=== PATIENT | female | born 1970 | race Caucasian/White ===

== ENCOUNTER → 2017-05-04 22:30 | Outpatient (CLI) | payer OTHER, SELFPAY ==
[2017-05-08 08:58] LABS: HPV APTIMA, High Risk Negative (Negative)
== END ==
PROVIDERS: Visit Provider Nurse Practitioner Women's Health
DX: Z12.4 Encounter for screening for malignant neoplasm of cervix (principal)
CPT/HCPCS: 88175; G0145

== ENCOUNTER → 2017-09-09 09:56 | Outpatient (CLI) | payer OTHER, SELFPAY | PROVIDERS: Visit Provider Nurse Practitioner Women's Health | DX: Z12.31 Encounter for screening mammogram for malignant neoplasm of breast (principal) | CPT/HCPCS: 77063; 77067 ==

== ENCOUNTER → 2018-09-14 12:22 | Outpatient (CLI) | payer OTHER, SELFPAY ==
--- NOTE | 2018-09-14 12:30 | BI_ITS ---
MAMMOGRAPHY - BILATERAL SCREENING REASON FOR EXAM: Female, 47 years old. Routine annual screening examination. PERTINENT HISTORY: Grandmother with breast cancer. TECHNIQUE: Digital bilateral breast anupam (3D mammographic acquisition) in the CC and MLO projections. 2-D mediolateral oblique (MLO) and craniocaudad (CC) views of both breasts were obtained. CAD: Full Field Digital Mammography with Computer Added Detection was performed. COMPARISON: Comparison is made with prior examination dated September 09, 2017. FINDINGS: Breast Composition: There are scattered areas of fibroglandular density. There are no dominant masses or suspicious calcifications. No other significant abnormalities are identified. There has been no significant change since the prior study. BI/SCREEN MAMM (CAD) W/ANUPAM BILAT IMPRESSION: Stable bilateral screening mammogram. Yearly follow-up mammogram recommended. (A) ASSESSMENT CATEGORY: BIRADS Category 1: Negative. A letter regarding these results will be sent to the patient by the facility within 30 days. Approximately 10% of breast cancers are not detected by mammography. A normal mammogram should not delay biopsy of a clinically suspicious abnormality. [id number] Electronically Signed: Lamonte Shane, at 13:42 EDT , Service support ,
== END ==
PROVIDERS: Family Provider Family Medicine; PCP Family Medicine; Referring Provider Nurse Practitioner Women's Health; Visit Provider Nurse Practitioner Women's Health
DX: Z12.31 Encounter for screening mammogram for malignant neoplasm of breast (principal)
CPT/HCPCS: 77063; 77067

== ENCOUNTER → 2019-02-23 15:34 | Outpatient (CLI) | payer OTHER, SELFPAY ==
[2018-09-14 12:57] VITALS: BMI 25.4
--- NOTE | 2019-02-22 10:00 | COLBX_PTH ---
PATIENT: JOHN KATE LOC: [facility] U#:[id number] AGE/SX: 54/F ROOM: RE02/23/[address]: Dr. Hyun Norton MD : 1970 BED: DIS: SPEC #: [id number] RECD: 02/23/19 15:30 STATUS: TABITHA RESharifa #: [id number] ANGELA: 02/22/19 10:[address]: Hyun Norton DEPT: SURGICAL PATHOLOGY RECD BY: Jm Puentes ENTERED: 02/24/19 10:30 SP TYPE: COLON BX SOLITARIO DR: Dr. Gregg Humphrey MD Tissues: COLON BIOPSY Procedures: Surgery Specimen Level IV HEADER OPERATION: Colonoscopy with biopsy PRE-OP DIAGNOSIS: R19.4, R19.5, K62.89 TISSUE SUBMITTED: Random colon biopsies MICROSCOPIC DIAGNOSIS Colon, random biopsy: Fragments of colonic mucosa, no pathologic diagnosis. SJ:larry 02/25/19 MICROSCOPIC DESCRIPTION Slides are reviewed. GROSS DESCRIPTION Received in fixative is one container labeled with the patient's name and designated random colon biopsy. The specimen consists of multiple irregular fragments of light block soft tissue that in aggregate measure 1.5 x 0.5 x 0.1 cm. The specimen is totally submitted in one cassette. / SJ:rg 02/24/19 TC:4 CPT: 15209
== END ==
PROVIDERS: Family Provider Family Medicine; PCP Family Medicine; Referring Provider Surgery; Visit Provider Surgery
DX: K62.89 Other specified diseases of anus and rectum (principal); R19.4 Change in bowel habit; R19.5 Other fecal abnormalities
CPT/HCPCS: 88305

== ENCOUNTER → 2019-10-25 13:54 | Outpatient (CLI) | payer OTHER, SELFPAY ==
[2018-09-14 12:57] VITALS: BMI 25.4
--- NOTE | 2019-10-25 13:54 | BI_ITS ---
MAMMOGRAPHY - BILATERAL SCREENING REASON FOR EXAM: Female, 48 years old. Routine annual screening examination. PERTINENT HISTORY: Grandmother with breast cancer. TECHNIQUE: Digital bilateral breast anupam (3D mammographic acquisition) in the CC and MLO projections. 2-D mediolateral oblique (MLO) and craniocaudad (CC) views of both breasts were obtained. CAD: Full Field Digital Mammography with Computer Added Detection was performed. COMPARISON: Comparison is made with prior examination 09/14/2018 and 09/09/2017. FINDINGS: Breast Composition: There are scattered areas of fibroglandular density. There are no dominant masses or suspicious calcifications. No other significant abnormalities are identified. There has been no significant change since the prior study. BI/SCREEN MAMM (CAD) W/ANUPAM BILAT IMPRESSION: Stable bilateral screening mammogram. Yearly follow-up mammogram recommended. (A) ASSESSMENT CATEGORY: BIRADS Category 1: Negative. A letter regarding these results will be sent to the patient by the facility within 30 days. Approximately 10% of breast cancers are not detected by mammography. A normal mammogram should not delay biopsy of a clinically suspicious abnormality. [id number] Electronically Signed: Lamonte Shane, at 15:16 EDT , Service support ,
== END ==
PROVIDERS: PCP Family Medicine; Referring Provider Nurse Practitioner Women's Health; Visit Provider Nurse Practitioner Women's Health
DX: Z12.31 Encounter for screening mammogram for malignant neoplasm of breast (principal)
CPT/HCPCS: 77063; 77067

== ENCOUNTER 2021-02-19 12:47 | Outpatient (CLI) | payer OTHER, SELFPAY ==
--- NOTE | 2021-02-19 12:49 | BI_ITS ---
MAMMOGRAPHY - BILATERAL SCREENING REASON FOR EXAM: Female, 50 years old. Routine annual screening examination. PERTINENT HISTORY: Grandmother with breast cancer. TECHNIQUE: Digital bilateral breast anupam (3D mammographic acquisition) in the CC and MLO projections. 2-D mediolateral oblique (MLO) and craniocaudad (CC) views of both breasts were obtained. CAD: Full Field Digital Mammography with Computer Added Detection was performed. COMPARISON: Comparison is made with prior study dated 10/25/2019 and 09/14/2018. FINDINGS: Breast Composition: There are scattered areas of fibroglandular density. There are no dominant masses or suspicious calcifications. Stable small benign-appearing bilateral axillary adenopathy. No other significant abnormalities are identified. There has been no significant change since the prior study. BI/SCRN MAMM (CAD)W/ANUPAM BILAT IMPRESSION: Stable bilateral screening mammogram. Yearly follow-up mammogram recommended. (A) ASSESSMENT CATEGORY: BIRADS Category 2: Benign. A letter regarding these results will be sent to the patient by the facility within 30 days. Approximately 10% of breast cancers are not detected by mammography. A normal mammogram should not delay biopsy of a clinically suspicious abnormality. [id number] Electronically Signed: Lamonte Shane MD at 14:06 EST , Service support ,
== END 2021-02-19 23:59 | disposition short-term general hospital (02) ==
LOC: OPBI 12:48
PROVIDERS: PCP Family Medicine; Referring Provider Nurse Practitioner Women's Health; Visit Provider Nurse Practitioner Women's Health
DX: Z12.31 Encounter for screening mammogram for malignant neoplasm of breast (principal); Z80.3 Family history of malignant neoplasm of breast
CPT/HCPCS: 77063; 77067

== ENCOUNTER 2021-04-25 16:53 | Emergency (ER) | payer OTHER, SELFPAY ==
[2021-04-25 16:53] VITALS: BP 173/127; PULSE 117; RESP 20; TEMP 36.7; O2SAT 99
[2021-04-25 17:04] VITALS: BMI 30.8
--- NOTE | 2021-04-25 17:05 | CT_ITS ---
We are attempting to reach an attending provider to discuss findings. An addendum with communication details will be sent when the communication is complete. STUDY: CT HEAD STROKE PROTOCOL W/O CONTRAST INJECTION REASON FOR EXAM: Female, 50 years old. NEURO SYMPTOMS RADIATION DOSAGE (If Supplied By Facility): CTDIvol = ( ) mGy, DLP = ( 745.49 ) mGycm TECHNIQUE: Transaxial CT imaging of the brain was performed without administration of intravenous contrast material. Individualized dose optimization techniques were used for this CT. COMPARISON: No relevant priors. FINDINGS: Normal soft tissue structures. Normal calvarium. Normal size ventricles and extra-axial spaces for the patient''s age. Minor periventricular white matter ischemic changes. Normal basal ganglia and thalami. Normal brainstem. Normal cerebellum. There is no intracranial hemorrhage. There are no findings of an acute ischemic infarction. Normal visualized paranasal sinuses. ASPECT score: 10 CT/STROKE Brain/Head without Cont IMPRESSION: Minor periventricular white matter ischemic change. No acute bleed. If concern for acute infarct MRI recommended Electronically Signed: Schuyler Jackson MD at 17:14 EDT Reading Location ID and State: [facility] / [place] , Service support ,
[2021-04-25 17:12] VITALS: BP 173/127; PULSE 117; RESP 20; TEMP 36.7; O2SAT 99; BMI 30.8
--- NOTE | 2021-04-25 17:17 | CT_ITS ---
EXAM: CT ANGIOGRAPHY HEAD AND NECK WITH INTRAVENOUS CONTRAST CLINICAL INDICATION: r/o stroke -- in ed 17 TECHNIQUE: [place]/head and neck CT angiography protocol performed with intravenous contrast. This CT exam was performed using one or more of the following dose reduction techniques: automated exposure control, adjustment of the mA and/or kV according to patient size, and/or use of iterative reconstruction technique. This report was created using [employer] report generation technology. MIP reconstructed images were created and reviewed. CONTRAST: IV 100mL Isovue-370 COMPARISON: None. FINDINGS: HEAD: RIGHT ANTERIOR CEREBRAL ARTERY: Unremarkable. No significant stenosis at the visualized segments. Anterior communicating artery is present. No aneurysm. RIGHT MIDDLE CEREBRAL ARTERY: Unremarkable. No significant stenosis at the visualized segments. No aneurysm. RIGHT POSTERIOR CEREBRAL ARTERY: Unremarkable. No occlusion or significant stenosis. No aneurysm. RIGHT INTRACRANIAL INTERNAL CAROTID ARTERY: Unremarkable. No significant stenosis. No dissection or occlusion. RIGHT INTRACRANIAL VERTEBRAL ARTERY: Unremarkable. No significant stenosis. No dissection or occlusion. LEFT ANTERIOR CEREBRAL ARTERY: Unremarkable. No significant stenosis at the visualized segments. No aneurysm. LEFT MIDDLE CEREBRAL ARTERY: Unremarkable. No significant stenosis at the visualized segments. No aneurysm. LEFT POSTERIOR CEREBRAL ARTERY: Unremarkable. No occlusion or significant stenosis. No aneurysm. LEFT INTRACRANIAL INTERNAL CAROTID ARTERY: Unremarkable. No significant stenosis. No dissection or occlusion. LEFT INTRACRANIAL VERTEBRAL ARTERY: Unremarkable. No significant stenosis. No dissection or occlusion. BASILAR ARTERY: Unremarkable. No significant stenosis. No aneurysm. GREAT VESSELS OF AORTIC ARCH: Unremarkable. Normal anatomy, patent. OTHER VASCULATURE: There are no acute findings of the right and left internal carotid artery. ALL ABOVE CRITERIA BY NASCET. No vascular malformation. NECK: RIGHT COMMON CAROTID ARTERY: Unremarkable. No significant stenosis. No dissection or occlusion. RIGHT EXTRACRANIAL INTERNAL CAROTID ARTERY: Unremarkable. No significant stenosis. No dissection or occlusion. RIGHT EXTERNAL CAROTID ARTERY: Unremarkable. No occlusion. RIGHT EXTRACRANIAL VERTEBRAL ARTERY: Unremarkable. No significant stenosis. No dissection or occlusion. LEFT COMMON CAROTID ARTERY: Unremarkable. No significant stenosis. No dissection or occlusion. LEFT EXTRACRANIAL INTERNAL CAROTID ARTERY: Unremarkable. No significant stenosis. No dissection or occlusion. LEFT EXTERNAL CAROTID ARTERY: Unremarkable. No occlusion. LEFT EXTRACRANIAL VERTEBRAL ARTERY: Unremarkable. No significant stenosis. No dissection or occlusion. LUNG APICES: Unremarkable as visualized. HEAD and NECK: BONES/JOINTS: Unremarkable. No discrete lytic or blastic abnormalities. SOFT TISSUES: Unremarkable. OTHER FINDINGS: There are no acute findings of the [place] without a demonstrated aneurysm or hemodynamically significant stenosis. ALL ABOVE CRITERIA BY NASCET. CAROTID STENOSIS REFERENCE USING NASCET CRITERIA: % ICA stenosis = (1 - narrowest ICA diameter/diameter of distal cervical ICA) x 100. Mild - <50% stenosis. Moderate - 50-69% stenosis. Severe - 70-94% stenosis. Near occlusion - 95-99% stenosis. Occluded - 100% stenosis. CT/CTA Head AND Neck W/ Contrast IMPRESSION: 1. There are no acute findings of the [place] without a demonstrated aneurysm or hemodynamically significant stenosis. ALL ABOVE CRITERIA BY NASCET. 2. There are no acute findings of the right and left internal carotid artery. ALL ABOVE CRITERIA BY NASCET. Electronically Signed: Rui Sandoval MD at 18:16 EDT ,
[2021-04-25 17:29] LABS: Absolute Lymphocyte Count 2.61 X10^3/uL (0.83-4.51); Absolute Neutrophil Count 2.5 X10^3/uL (2.0-7.7); Basophil# 0.03 X10^3/uL; Basophil% 0.5 % (0-1); Eosinophil# 0.08 X10^3/uL; Eosinophils% 1.4 % (0-5); Hematocrit 39.8 % (37-47); Hemoglobin 13.6 g/dL (12.0-15.0); Lymphocyte # 2.61 X10^3/ul (0.83-4.51); Lymphocyte % 45.9 % (19-41); Mean Corp Hgb Conc 34.2 g/dL (32-36); Mean Corpuscular Hgb 29.4 pg (27.0-32.0); Mean Platelet Vol. 10.2 fl (6.2-12.0); Monocyte# 0.44 X10^3/uL; Monocyte% 7.7 % (0-10); NRBC Flagged by Analyzer 0 % (0-5); Neutrophil # 2.52 X10^3/uL (2.7-7.7); Neutrophil % 44.3 % (47-70); Platelet Count 217 K/mm3 (150-450); RBC Distribution Width SD 40.5 fl (35.1-43.9); Red Blood Count 4.63 M/mm3 (4.2-5.4); White Blood Count 5.7 K/mm3 (4.4-11.0)
[2021-04-25 17:30] LABS: Prothrombin Time (Protime)PT. 12.9 SECONDS (11.7-14.9)
--- NOTE | 2021-04-25 17:33 | EDS_ITS ---
HPI <JACOBO Soto - Last Filed: 04/25/21 20:48> History of Present Illness Chief Complaint: Neuro S/Sx Narrative Narrative: 50-year-old female with no past medical history presents with left sided paresthesias. 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 She states it feels like when you have had lidocaine at the dentist and it is waking up. She has no lower extremity symptoms. No weakness, vision changes, or speech changes. No difficulty ambulating. No headache, fever, chills, or recent infectious symptoms. She states she had similar facial numbness 25 years ago and thinks she had a CAT scan at that time but around then she was also having frequent headaches. She denies recent headache. [facility] <JACOBO Soto - Last Filed: 04/25/21 20:48> [facility] Medical History (Updated 04/25/21 @ 20:46 by JACOBO Soto) Condyloma acuminata Migraines Home Medications ascorbic acid (vitamin C) 500 mg PO DAILY 04/25/21 [History Last Taken 04/23/21] cholecalciferol (vitamin D3) 25 mcg PO DAILY 04/25/21 [History Last Taken 04/25/21] Allergy/AdvReac Type Severity Reaction Status Date / Time sulfamethoxazole Allergy Mild Unknown Verified 04/25/21 17:05 [From Bactrim] trimethoprim [From Bactrim] Allergy Mild Unknown Verified 04/25/21 17:05 Family History Grandmother Heart disease Cancer Bladder Kidney Brain Tumor Breast cancer Grandfather Diabetes Social History Smoking Status: Never smoker alcohol intake: never substance use type: does not use caffeine: Yes frequency: 5-6 times per week seatbelt use: always do you feel safe at home: Yes additional social history: - Joann (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 Eyes: Negative for visual change. ENT: Negative for sore throat, ear pain, rhinorrhea. CVS: Negative for palpitations, chest pain, syncope. Respiratory: Negative for shortness of breath, cough, orthopnea. GI: Negative for abdominal pain, nausea, vomiting, diarrhea, constipation, melena, hematochezia. : Negative for dysuria, hematuria or frequency. Neuro: Positive for sensory dysfunction. Negative for headache, motor dysfunction. Skin: Negative for rash, abscess, or wound. Musc: Negative for joint pain, swelling, trauma. Heme: Negative for easy bruising, bleeding, lymphadenopathy. EXAM <JACOBO Soto - Last Filed: 04/25/21 20:48> Physical Exam Narrative Exam Narrative: CONST: Patient sitting in no acute distress. EYES: Normal inspection. ENT: Normal inspection, moist mucous membranes. NECK: Normal inspection. RESP: No respiratory distress, CTAB. CVS: Regular rate and rhythm, no murmur, no gallop. ABD: Soft and nontender, no guarding or rebound, nondistended. SKIN: Color normal, no rash, warm, dry, intact. EXTREMITIES: Normal appearance, no pedal edema. 5/5 upper and lower extremity strength, 2+ radial and DP pulses NEURO: Oriented x4. Follows commands, CN II through XII intact, EOMI, PERRLA, no visual field deficits. Face is symmetric, no upper or lower extremity drift, normal kbbliv-jk-jfme and lrjm-no-swnt bilaterally, slightly decreased sensation to light touch in the left face and left arm, no aphasia or dysarthria, no extinction. NIH = 1. PSYCH: Normal affect. Const Vital Signs: 04/25/21 16:53 04/25/21 17:12 04/25/21 18:25 Temperature 98.0 F 98.0 F Temperature Source Temporal Temporal Pulse Rate 117 H 117 H 67 Respiratory Rate 20 H 20 H 15 Blood Pressure 173/127 H 173/127 H Blood Pressure Mean 142 142 Pulse Ox 99 99 97 Oxygen Delivery Method Room Air Room Air 04/25/21 19:55 04/25/21 20:58 Temperature Temperature Source Pulse Rate 88 58 L Respiratory Rate 18 17 Blood Pressure 144/82 H Blood Pressure Mean 102 Pulse Ox 99 99 Oxygen Delivery Method Room Air Room Air <Dr. Alejandro Dumont MD - Last Filed: 04/25/21 22:58> Physical Exam Const Vital Signs: 04/25/21 16:53 04/25/21 17:12 04/25/21 18:25 Temperature 98.0 F 98.0 F Temperature Source Temporal Temporal Pulse Rate 117 H 117 H 67 Respiratory Rate 20 H 20 H 15 Blood Pressure 173/127 H 173/127 H Blood Pressure Mean 142 142 Pulse Ox 99 99 97 Oxygen Delivery Method Room Air Room Air 04/25/21 19:55 04/25/21 20:58 Temperature Temperature Source Pulse Rate 88 58 L Respiratory Rate 18 17 Blood Pressure 144/82 H Blood Pressure Mean 102 Pulse Ox 99 99 Oxygen Delivery Method Room Air Room Air MDM <JACOBO Soto - Last Filed: 04/25/21 20:48> [facility] Narrative Medical decision making narrative: Patient presents with paresthesias in her left face and left arm. She appears well and nontoxic. In triage she was hypertensive at 173/127, heart rate 117, otherwise normal vital signs. I examined her in triage. She has subjective decreased sensation to light touch in the left face and left arm. There is no weakness present or other focal neurologic deficits. Stroke alert was called and she was taken immediately to CT. Initial CT/CTA are negative for acute findings. Basic labs unremarkable. Upon reexamination I did a full neurological exam and her NIH is 1 for the subjective sensory deficits. The case was discussed with the hospitalist for possible admission and he said there is a stat MRI opening. The plan is to obtain the MRI brain without contrast from the ED and if normal she can be discharged home as she really has no risk factors for stroke. She takes no medications. Her blood pressure was elevated in triage but upon reexamination is 140/90. MRI brain without contrast was obtained and shows no acute process. At this time the etiology of her symptoms is unclear but she is stable to go home and follow-up for outpatient work-up. However she was counseled if she has any new neurological symptoms she should return to the ER. Patient was agreeable and discharged in stable condition. 1. Left sided facial and upper extremity paresthesia Lab Data Labs: Laboratory Results - last 24 hr 04/25/21 04/25/21 04/25/21 16:59 16:59 16:59 WBC 5.7 RBC 4.63 Hgb 13.6 Hct 39.8 MCV 86.0 MCH 29.4 MCHC 34.2 RDW Std Deviation 40.5 RDW Coeff of Andrea 13.0 Plt Count 217 MPV 10.2 Immature Gran % (Auto) 0.200 Neut % (Auto) 44.3 L Lymph % (Auto) 45.9 H [place] % (Auto) 7.7 Eos % (Auto) 1.4 Baso % (Auto) 0.5 Absolute Neuts (auto) 2.5 Absolute Lymphs (auto) 2.61 Nucleated RBC % 0 PT 12.9 INR 1.0 Sodium 139 Potassium 3.4 L Chloride 105 Carbon Dioxide 28.0 Anion Gap 6 BUN 14 Creatinine 1.00 Estim Creat Clear Calc 47.81 Est GFR (MDRD) Af Amer 75 Est GFR (MDRD) Non-Af 62 BUN/Creatinine Ratio 14.0 Glucose 101 Calcium 9.3 Radiography Diagnostic Testing: Clinical Impression(s) from Imaging Studies Brain CT 04/25/21 17:05 IMPRESSION: Minor periventricular white matter ischemic change. No acute bleed. If concern for acute infarct MRI recommended Electronically Signed: Schuyler Jackson MD at 17:14 EDT , ADDENDUM: 04/25/21 1725 IMPRESSION: Minor periventricular white matter ischemic change. No acute bleed. If concern for acute infarct MRI recommended N.B. : The above Results were Read Back by Schuyler Jackson MD to TANGELA TOPETE PA, and understanding confirmed on 04/25/2021 17:18:10 (ET). Electronically Signed: Schuyler Jackson MD at 17:14 EDT , Head/Neck CTA 04/25/21 17:17 IMPRESSION: 1. There are no acute findings of the [place] without a demonstrated aneurysm or hemodynamically significant stenosis. ALL ABOVE CRITERIA BY NASCET. 2. There are no acute findings of the right and left internal carotid artery. ALL ABOVE CRITERIA BY NASCET. Electronically Signed: Rui Sandoval MD at 18:16 EDT , Brain MRI 04/25/21 19:20 IMPRESSION: Normal unenhanced MRI of the brain. Electronically Signed: Schuyler Jackson MD at 20:36 EDT , EKG Initial EKG: Attestation: I personally reviewed and interpreted this EKG as follows: Interpretation: Sinus Rhythm Comments: Sinus bradycardia, normal intervals, no acute ischemic change <Dr. Alejandro Dumont MD - Last Filed: 04/25/21 22:58> [facility] MDM Narrative Medical decision making narrative: History: Patient presents with some sensory changes of her left arm and a little bit on her left lower jaw that started around 230 today. It was a paresthesia type feeling. No weakness or discoordination. No speech or vision complaints. It is improving now. She thinks she had this once about 25 years ago but has not had it since. She is overall healthy and on no long-term medications for diabetes blood pressure cholesterol. There is no family history really of stroke or heart disease in first-degree relative. Exam is really normal at this time. She feels that her symptoms are better. Her NIH for me is 0 at this time. Evidently she was a 1 for some slight sensory changes in the left arm when she first showed up. Blood work shows no acute process. CT is negative. Stroke teleneurologist did see her recommending further evaluation including MRI. We discussed case with hospitalist. They were able to arrange a MRI tonight. This MRI was normal. With her symptoms resolved and this normal she will do further work-up as an outpatient. Lab Data Attestation: I reviewed the patient's lab results. Labs: Laboratory Results - last 24 hr 04/25/21 04/25/21 04/25/21 16:59 16:59 16:59 WBC 5.7 RBC 4.63 Hgb 13.6 Hct 39.8 MCV 86.0 MCH 29.4 MCHC 34.2 RDW Std Deviation 40.5 RDW Coeff of Andrea 13.0 Plt Count 217 MPV 10.2 Immature Gran % (Auto) 0.200 Neut % (Auto) 44.3 L Lymph % (Auto) 45.9 H [place] % (Auto) 7.7 Eos % (Auto) 1.4 Baso % (Auto) 0.5 Absolute Neuts (auto) 2.5 Absolute Lymphs (auto) 2.61 Nucleated RBC % 0 PT 12.9 INR 1.0 Sodium 139 Potassium 3.4 L Chloride 105 Carbon Dioxide 28.0 Anion Gap 6 BUN 14 Creatinine 1.00 Estim Creat Clear Calc 47.81 Est GFR (MDRD) Af Amer 75 Est GFR (MDRD) Non-Af 62 BUN/Creatinine Ratio 14.0 Glucose 101 Calcium 9.3 Radiography Diagnostic Testing: Clinical Impression(s) from Imaging Studies Brain CT 04/25/21 17:05 IMPRESSION: Minor periventricular white matter ischemic change. No acute bleed. If concern for acute infarct MRI recommended Electronically Signed: Schuyler Jackson MD at 17:14 EDT , ADDENDUM: 04/25/21 1725 IMPRESSION: Minor periventricular white matter ischemic change. No acute bleed. If concern for acute infarct MRI recommended N.B. : The above Results were Read Back by Schuyler Jackson MD to TANGELA TOPETE PA, and understanding confirmed on 04/25/2021 17:18:10 (ET). Electronically Signed: Schuyler Jackson MD at 17:14 EDT , Head/Neck CTA 04/25/21 17:17 IMPRESSION: 1. There are no acute findings of the [place] without a demonstrated aneurysm or hemodynamically significant stenosis. ALL ABOVE CRITERIA BY NASCET. 2. There are no acute findings of the right and left internal carotid artery. ALL ABOVE CRITERIA BY NASCET. Electronically Signed: Rui Sandoval MD at 18:16 EDT , Brain MRI 04/25/21 19:20 IMPRESSION: Normal unenhanced MRI of the brain. Electronically Signed: Schuyler Jackson MD at 20:36 EDT , Discharge Plan Triage Chief Complaint: Neuro S/Sx ED Provider: Tangela Topete Dx/Rx/DC Orders Clinical Impression: Paresthesia Instructions: ED Paraesthesias Prescriptions: No Action ascorbic acid (vitamin C) 500 mg Tablet,Chewable 500 mg PO DAILY RF: 0 cholecalciferol (vitamin D3) 25 mcg (1,000 unit) Capsule 25 mcg PO DAILY RF: 0 Primary Care Provider: Gregg Humphrey Referrals: Gregg Humphrey MD [Primary Care Provider] - Activity Restrictions/Additional Instructions: Today the MRI of your brain showed no abnormalities with no signs of stroke. This time the cause of your symptoms is not clear but we feel you are safe to go home with a normal work-up here in the ER. If you have new or worsening symptoms please return to the ER, otherwise follow-up with your primary care doctor. Disposition Disposition: Home, Self Care Discharge Date/Time: 04/25/21 21:00
--- NOTE | 2021-04-25 17:35 | CM.ED ---
VICTORINO Note: Stroke Alert VICTORINO and VICTORINO Eryn Holbrook responded to stroke alert. Patient was in the room with her mother. Patient appeared comfortable. She voiced she was glad she did not have stroke. VICTORINO provided emotional support. VICTORINO remains available if needs arise. Plan: Emotional Support Ramya DU
[2021-04-25 17:45] LABS: Anion Gap 6 (5-15); BUN 14 mg/dL (7-18); Calcium,Total 9.3 mg/dL (8.5-10.1); Chloride 105 mmol/L (98-107); EST Glomerular Filtration Rate 62 mL/min (>60); Est Glom Filt Rate - Afr Amer 75 mL/min (>60); Estimated Creatinine Clearance 47.81 ml/min; Glucose 101 mg/dL (74-106); Potassium 3.4 mmol/L (3.5-5.1); Sodium Level 139 mmol/L (136-145)
--- NOTE | 2021-04-25 18:19 | EKG12_ITS ---
Test Reason : STROKE ALERT Blood Pressure : / mmHG Vent. Rate : 059 BPM Atrial Rate : 059 BPM P-R Int : 132 ms QRS Dur : 070 ms QT Int : 444 ms P-R-T Axes : 057 050 026 degrees QTc Int : 439 ms Sinus bradycardia Otherwise normal ECG Confirmed by ESTRADA YO, CATHIE ([id number]), acquisition editor QUAN PARRA ([id number]) on 04/29/2021 11:04:00 A M Referred By: PL Confirmed By:SUNITA DORADO MD
[2021-04-25 18:25] VITALS: PULSE 67; RESP 15; O2SAT 97
--- NOTE | 2021-04-25 19:20 | MRI_ITS ---
STUDY: MRI BRAIN WITHOUT CONTRAST REASON FOR EXAM: Female, 50 years old. paresthesia TECHNIQUE: Standardized multiplanar fat and water weighted pulse sequences were obtained. COMPARISON: CT of the brain 04/25/2021 FINDINGS: Normal size of the ventricles and extra-axial spaces for the patient''s age. Normal white matter tracts of the supratentorial brain. Normal bilateral basal ganglia. Normal thalami. There is no extra-axial fluid accumulation. Normal flow voids within the major intracranial circulation suggesting patency by spin echo criteria. Normal sella turcica, pituitary gland, infundibular stalk, optic chiasm and hypothalamus. Normal tectal plate and pineal gland. Normal midbrain, evan and medulla. Normal cerebellum. Normal basal cisterns. Normal bilateral temporal bones. Normal bilateral internal auditory canals. No demonstrated orbital abnormality, within the constraints of a routine brain study. Normal visualized paranasal sinuses. Normal calvarium and skull base. Normal visualized soft tissue structures. Normal visualized upper cervical spine. MRI/Brain without Contrast IMPRESSION: Normal unenhanced MRI of the brain. Electronically Signed: Schuyler Jackson MD at 20:36 EDT ,
[2021-04-25 19:55] VITALS: PULSE 88; RESP 18; O2SAT 99
[2021-04-25 20:58] VITALS: BP 144/82; PULSE 58; RESP 17; O2SAT 99
[2021-04-26 07:35] LABS: Bedside Glucose 106 mg/dL (74-106)
== END 2021-04-25 21:00 | disposition home or self-care (01) ==
PROVIDERS: Emergency Provider Physician Assistant; PCP Family Medicine; Visit Provider Physician Assistant
DX: R20.2 Paresthesia of skin (principal); R51.9 Headache, unspecified; I10 Essential (primary) hypertension; Z79.899 Other long term (current) drug therapy
CPT/HCPCS: 70450; 70496; 70498; 70551; 80048; 82962; 85025; 85610; 93005; 99283; Q9967; A4216

== ENCOUNTER → 2022-02-24 | Outpatient (CLI) | payer OTHER, SELFPAY ==
--- NOTE | 2022-02-24 09:52 | BI_ITS ---
MAMMOGRAPHY - BILATERAL SCREENING REASON FOR EXAM: Female, 51 years old. Routine annual screening examination. PERTINENT HISTORY: Sister with breast cancer. Grandmother with breast cancer. TECHNIQUE: Digital bilateral breast anupam (3D mammographic acquisition) in the CC and MLO projections. 2-D mediolateral oblique (MLO) and craniocaudad (CC) views of both breasts were obtained. CAD: Full Field Digital Mammography with Computer Added Detection was performed. COMPARISON: Comparison is made with prior study dated 02/19/2021 and 10/25/2019. FINDINGS: Breast Composition: There are scattered areas of fibroglandular density. There are no dominant masses or suspicious calcifications. Stable small benign-appearing bilateral axillary lymph nodes. No other significant abnormalities are identified. There has been no significant change since the prior study. BI/SCRN MAMM (CAD)W/ANUPAM BILAT IMPRESSION: Stable bilateral screening mammogram. Yearly follow-up mammogram recommended. (A) ASSESSMENT CATEGORY: BIRADS Category 2: Benign. A letter regarding these results will be sent to the patient by the facility within 30 days. Approximately 10% of breast cancers are not detected by mammography. A normal mammogram should not delay biopsy of a clinically suspicious abnormality. [id number] Electronically Signed: Lamonte Shane MD at 12:41 EST ,
== END | disposition home or self-care (01) ==
LOC: OPBI 09:49
PROVIDERS: PCP Family Medicine; Visit Provider Nurse Practitioner Women's Health
DX: Z12.31 Encounter for screening mammogram for malignant neoplasm of breast (principal); Z80.3 Family history of malignant neoplasm of breast
CPT/HCPCS: 77063; 77067

== ENCOUNTER → 2022-02-26 | Outpatient (CLI) | payer OTHER, SELFPAY ==
[2022-02-28 20:29] LABS: HPV APTIMA, High Risk Negative (Negative)
== END | disposition home or self-care (01) ==
LOC: US 13:04
PROVIDERS: PCP Family Medicine; Visit Provider Nurse Practitioner Women's Health
DX: Z01.419 Encounter for gynecological examination (general) (routine) without abnormal findings (principal)
CPT/HCPCS: 87624; 88175; G0145

== ENCOUNTER → 2022-03-05 | Outpatient (CLI) | payer OTHER, SELFPAY ==
--- NOTE | 2022-03-05 15:51 | US_ITS ---
STUDY: ULTRASOUND OF THE FEMALE PELVIS - COMPLETE REASON FOR EXAM: Female, 51 years old. Irregular menses. Abnormal uterine bleeding. LMP: Unknown. TECHNIQUE: Transabdominal and Transvaginal TECHNICAL QUALITY: Adequate. COMPARISON: None. FINDINGS: The uterus is initially anteverted but appears retroverted in later images. It is in a midline position. The uterus measures 7.3 x 4.8 x 4.5 cm. Multiple nabothian cysts. The endometrium measures 3.5 mm in thickness, and is hyperechoic. There is no demonstrated endometrial mass. There is a 1.7 x 1.6 x 1.3 cm in the posterior fundus. I.U.D. - The patient does not have an I.U.D. The right ovary is visualized. The right ovary measures 2.5 x 1.5 x 1.3 cm. There are multiple follicles of the right ovary with a 1.3 x 1.0 x 1.3 cm dominant follicle. There is no visualized right adnexal mass or complex lesion. There is normal arterial and normal venous vascularity. The left ovary is visualized. The left ovary measures 1.7 x 1.2 x 1 point cm. There are multiple follicles of the left ovary without a dominant cyst. There is no visualized left adnexal mass or complex lesion. There is normal arterial and normal venous vascularity. There is mild fluid in the cul-de-sac. The pre void volume of the bladder was 310 ml. The urinary bladder is otherwise grossly normal Polycystic ovary disease: No. US/Pelvic (Non ) IMPRESSION: 1. Fibroid uterus. There is no endometrial abnormality. 2. Multiple nabothian cysts. 3. Normal ovaries. 4. Minimal free fluid, thought to be physiologic. Electronically Signed: Moustapha Howard DO at 17:43 EST ,
--- NOTE | 2022-03-05 15:51 | US_ITS ---
STUDY: ULTRASOUND OF THE FEMALE PELVIS - COMPLETE REASON FOR EXAM: Female, 51 years old. Irregular menses. Abnormal uterine bleeding. LMP: Unknown. TECHNIQUE: Transabdominal and Transvaginal TECHNICAL QUALITY: Adequate. COMPARISON: None. FINDINGS: The uterus is initially anteverted but appears retroverted in later images. It is in a midline position. The uterus measures 7.3 x 4.8 x 4.5 cm. Multiple nabothian cysts. The endometrium measures 3.5 mm in thickness, and is hyperechoic. There is no demonstrated endometrial mass. There is a 1.7 x 1.6 x 1.3 cm in the posterior fundus. I.U.D. - The patient does not have an I.U.D. The right ovary is visualized. The right ovary measures 2.5 x 1.5 x 1.3 cm. There are multiple follicles of the right ovary with a 1.3 x 1.0 x 1.3 cm dominant follicle. There is no visualized right adnexal mass or complex lesion. There is normal arterial and normal venous vascularity. The left ovary is visualized. The left ovary measures 1.7 x 1.2 x 1 point cm. There are multiple follicles of the left ovary without a dominant cyst. There is no visualized left adnexal mass or complex lesion. There is normal arterial and normal venous vascularity. There is mild fluid in the cul-de-sac. The pre void volume of the bladder was 310 ml. The urinary bladder is otherwise grossly normal Polycystic ovary disease: No. US/Transvaginal Non- IMPRESSION: 1. Fibroid uterus. There is no endometrial abnormality. 2. Multiple nabothian cysts. 3. Normal ovaries. 4. Minimal free fluid, thought to be physiologic. Electronically Signed: Moustapha Howard DO at 17:43 EST ,
== END | disposition home or self-care (01) ==
LOC: US 15:50
PROVIDERS: PCP Family Medicine; Referring Provider Nurse Practitioner Women's Health; Visit Provider Nurse Practitioner Women's Health
DX: D25.9 Leiomyoma of uterus, unspecified (principal); N93.9 Abnormal uterine and vaginal bleeding, unspecified; N92.6 Irregular menstruation, unspecified; N88.8 Other specified noninflammatory disorders of cervix uteri; Z80.49 Family history of malignant neoplasm of other genital organs
CPT/HCPCS: 76830; 76856

== ENCOUNTER → 2023-03-02 | Outpatient (CLI) | payer OTHER, SELFPAY ==
--- NOTE | 2023-03-02 08:21 | BI_ITS ---
MAMMOGRAPHY - BILATERAL SCREENING REASON FOR EXAM: Female, 52 years old. Routine annual screening examination. PERTINENT HISTORY: Grandmother with breast cancer. TECHNIQUE: Digital bilateral breast anupam (3D mammographic acquisition) in the CC and MLO projections. 2-D mediolateral oblique (MLO) and craniocaudad (CC) views of both breasts were obtained. CAD: Full Field Digital Mammography with Computer Added Detection was performed. COMPARISON: Comparison is made with prior study dated August 24, 2022 and February 19, 2021. FINDINGS: Breast Composition: There are scattered areas of fibroglandular density. There are no dominant masses or suspicious calcifications. Stable small benign-appearing bilateral axillary lymph nodes. No other significant abnormalities are identified. There has been no significant change since the prior study. BI/SCRN MAMM (CAD)W/ANUPAM BILAT IMPRESSION: Stable bilateral screening mammogram. Yearly follow-up mammogram recommended. (A) ASSESSMENT CATEGORY: BIRADS Category 2: Benign. A letter regarding these results will be sent to the patient by the facility within 30 days. Approximately 10% of breast cancers are not detected by mammography. A normal mammogram should not delay biopsy of a clinically suspicious abnormality. [id number] Electronically Signed: Lamonte Shane MD at 14:41 EST ,
--- OUTSIDE RECORDS SUMMARY | 2023-03-02 08:59 | XMS RPT_ITS | CCD ---
Author Name Unknown Address [address] [place] [address] Organization [facility] Care Team Providers Care Process Engineering Technician Name Role Phone Brennan Contreras MD Primary Care Provider BRENNAN CONTRERAS Referring Unavailab BRENNAN Donnelly Primary Care Unavailab BRENNAN Donnelly Attending BRENNAN Gutiérrez Primary Care Unavailab YUKO Hui Referring Unavailable BRENNAN CONTRERAS Primary Care Unavailab YUKO Hui Attending Unavailable BRENNAN CONTRERAS Primary Care Unavailab BRENNAN Donnelly Referring Unavailab BRENNAN Donnelly Primary Care Unavailab BRENNAN Donnelly Referring Unavailab BRENNAN Donnelly Primary Care Unavailab BRENNAN Donnelly Referring Unavailab BRENNAN Donnelly Primary Care UnavailBrennan Nguyen MD Primary Care Provider Allergies Allergy Classification Reported Allergen(s) Allergy Type Date of Onset Reaction(s) Facility (10 sources) Sulfamethoxazole / Trimethoprim; Translations: [SULFAMETHOXAZOLE-TRI METHOPRIM] Drug Allergy 6 Rash [facility] Work Phone: Medications Completed/Discontinued Medications Medication Drug Class(es) Dates Sig (Normalized) Sig (Original) [id number] 200 actuat albuterol 0.09 mg/actuat metered dose inhaler (3 sources) beta2-Adrenergic Agonist Start: 12-18-2022 take 2 puff(s) by inhalation every four hours as needed for wheezing albuterol HFA (VENTOLIN HFA) 90 mcg/actuation inhaler Inhale 2 Puffs as instructed every 4 hours as needed for wheezing/shortnes s of breath. 1 Each 1 12/18/2022 Active Problems Active Problems Problem Classification Problem Date Documented Da te Episodic/Chronic Abdominal pain (1 source) Right lower quadrant pain; Translations: [Right lower quadrant pain] Episodic Headache; including migraine (9 sources) Migraine; Translations: [Migraine, unspecified, not intractable, without status migrainosus] Onset: 05-25-2012 05-25-2012 Chronic Nausea and vomiting (1 source) Nausea; Translations: [Nausea] Episodic Nonspecific chest pain (3 sources) Chest pain on exertion; Translations: [Chest pain, unspecified] Onset: 12-22-2022 12-23-2022 Episodic Other connective tissue disease (1 source) Pain of toe of left foot; Translations: [Pain in left toe(s)] 10-29-2022 Episodic Other connective tissue disease (1 source) Pain in left toe(s); Translations: [Pain of toe of left foot] Onset: 10-29-2022 Episodic Other nervous system disorders (1 source) Paresthesia of left upper limb; Translations: [Paresthesia of skin] Episodic Other nervous system disorders (1 source) Paresthesia; Translations: [Paresthesia of skin] Episodic Other nervous system disorders (1 source) Paresthesia of lower extremity; Translations: [Anesthesia of skin] 10-29-2022 Episodic Other nervous system disorders (1 source) Anesthesia of skin; Translations: [Numbness and tingling of leg] Onset: 10-29-2022 Episodic Other nervous system disorders (1 source) Paresthesia of skin; Translations: [Numbness and tingling of leg] Onset: 10-29-2022 Episodic Other nutritional; endocrine; and metabolic disorders (1 source) Hyperbilirubinemia; Translations: [Other disorders of bilirubin metabolism] Chronic Other upper respiratory disease (8 sources) Seasonal allergy; Translations: [Other seasonal allergic rhinitis] Onset: 07-01-2021 Chronic Spondylosis; intervertebral disc disorders; other back problems (1 source) Chronic back pain ; Translations: [Dorsalgia, unspecified] Episodic Past or Other Problems Problem Classification Problem Date Documented Da te Episodic/Chronic Viral infection (8 sources) Condyloma acuminatum of the anogenital region; Translations: [Anogenital (venereal) warts] Onset: 05-25-2012 05-25-2012 Episodic Results Test Name Value Interpretation Reference Range Facil ity Vital Signs Date Time Vital Sign Value Performing Clinician Conrado sánchez 10-29-2022 15:16-0400 Body weight 71.03 kg Yuko Podlogar CRO.CIRCUIT RECORDER Work Phone: [facility] 10-29-2022 15:16-0400 Diastolic blood pressure 78 mm[Hg] Yuko Podlogar CRO.CIRCUIT RECORDER Work Phone: [facility] 10-29-2022 15:16-0400 Heart rate 76 /min Yuko Podlogar CRO.CIRCUIT RECORDER Work Phone: [facility] 10-29-2022 15:16-0400 Respiratory rate 18 /min Yuko Podlogar CRO.CIRCUIT RECORDER Work Phone: [facility] 10-29-2022 15:16-0400 SaO2% (BldA) [Mass fraction] 98 % Yuko Podlogar CRO.CIRCUIT RECORDER Work Phone: [facility] 10-29-2022 15:16-0400 Systolic blood pressure 122 mm[Hg] Yuko Podlogar CRO.CIRCUIT RECORDER Work Phone: [facility] 12-13-2021 09:55-0400 Body weight 73.12 kg Yuko Podlogar CRO.CIRCUIT RECORDER Work Phone: [facility] 12-13-2021 09:55-0400 Diastolic blood pressure 84 mm[Hg] Yuko Podlogar CRO.CIRCUIT RECORDER Work Phone: [facility] 12-13-2021 09:55-0400 Heart rate 66 /min Yuko Podlogar CRO.CIRCUIT RECORDER Work Phone: [facility] 12-13-2021 09:55-0400 Respiratory rate 16 /min Yuko Podlogar CRO.CIRCUIT RECORDER Work Phone: [facility] 12-13-2021 09:55-0400 SaO2% (BldA) [Mass fraction] 97 % Yuko Podlogar CRO.CIRCUIT RECORDER Work Phone: [facility] 12-13-2021 09:55-0400 Systolic blood pressure 122 mm[Hg] Yuko Podlogar CRO.CIRCUIT RECORDER Work Phone: [facility] 07-01-2021 13:18-0400 Body height 156.2 cm Brennan Contreras MD Work Phone: [facility] 07-01-2021 13:18-0400 Body weight 69.22 kg Brennan Contreras MD Work Phone: [facility] 07-01-2021 13:18-0400 Diastolic blood pressure 70 mm[Hg] Brennan Contreras MD Work Phone: [facility] 07-01-2021 13:18-0400 Heart rate 61 /min Brennan Contreras MD Work Phone: [facility] 07-01-2021 13:18-0400 Respiratory rate 16 /min Brennan Contreras MD Work Phone: [facility] 07-01-2021 13:18-0400 SaO2% (BldA) [Mass fraction] 98 % Brennan Contreras MD Work Phone: [facility] 07-01-2021 13:18-0400 Systolic blood pressure 130 mm[Hg] Brennan Contreras MD Work Phone: [facility] Encounters Encounter Date Encounter Type Care Provider Facility Start: 12-29-2022 Telephone encounter Gregg Contreras MD Work Phone: [facility] Procedures Date Procedure Procedure Detail Performing Clinician Start: 12-27-2022 Lipid 1996 panel - S matty or Plasma Brennan Contreras MD Work Phone: Start: 12-23-2022 Cv strs tst xers&/or rx cont ecg trcg only Brennan Contreras MD Work Phone: Start: 12-13-2021 Urnls dip stick/tabl et rgnt auto w/o microscopy Yuko Podlogar CRO.CIRCUIT RECORDER Work Phone: Start: 06-28-2021 Adult depression screening assessment Brennan Contreras MD Work Phone: Start: 06-28-2021 Lipid 1996 panel - S matty or Plasma Yuko Bell APRN.CIRCUIT RECORDER Work Phone: Start: 02-19-2021 Mammography Gregg Contreras MD Work Phone: Start: 05-02-2020 Adult depression screening assessment Brennan Contreras MD Work Phone: Start: 02-23-2019 Colonoscopy Gregg Contreras MD Work Phone: Plan of Treatment Date Care Activity Detail Author Start: 02-23-2029 Colonoscopy COLONOSCOPY [facility] Start: 02-23-2029 COLORECTAL CANCER SCREENING COLORECTAL CANCER SCREENING [facility] Start: 04-10-2028 Urine microalbumin profile [facility] Start: 12-28-2027 Lipid 1996 panel - S matty or Plasma Lipid Screening [facility] Start: 02-26-2027 HPV Testing HPV Testing [facility] Start: 02-26-2027 Pap Testing Pap Testing [facility] Start: 06-28-2026 Lipid 1996 panel - S matty or Plasma Lipid Screening [facility] Start: 06-28-2026 LIPID SCREEN LIPID SCREEN [facility] Start: 12-27-2025 Diabetes Screening Diabetes Screenin [facility] Start: 05-02-2025 LIPID SCREEN LIPID SCREEN [facility] Start: 12-13-2024 DIABETES SCREEN DIABETES SCREEN [facility] Start: 12-13-2024 Diabetes Screening Diabetes Screenin g [facility] Start: 12-20-2023 DIABETES SCREEN DIABETES SCREEN [facility] Start: 2023 Covid-19 Vaccine ( season) Covid-19 Vaccine () [facility] Immunizations Immunization Date Immunization Notes Care Provider Fa michelle 12-18-2022 zoster vaccine recombinant Brennan Contreras MD Work Phone: [facility] 04-10-2018 tetanus toxoid, redu blanca diphtheria toxoid, and acellular pertussis vaccine, adsorbed Brennan Contreras MD Work Phone: [facility] 12-01-2017 influenza virus vaccine, unspecified formulation Yuko Arabella BLACKBURNN.CIRCUIT RECORDER Work Phone: [facility] 10-09-2010 tetanus toxoid, redu blanca diphtheria toxoid, and acellular pertussis vaccine, adsorbed Brennan Contreras MD Work Phone: [facility] Work Phone: 03-23-2009 hepatitis B vaccine, adult dosage Brennan Contreras MD Work Phone: [facility] Work Phone: 03-16-2009 novel [id number], live virus for nasal administration Brennan Contreras MD Work Phone: [facility] Work Phone: 10-23-2008 hepatitis B vaccine, adult dosage Brennan Contreras MD Work Phone: [facility] Work Phone: 09-04-2008 hepatitis B vaccine, adult dosage Brennan Contreras MD Work Phone: [facility] Work Phone: Payers Date Payer Category Payer Unknown [id number] 2021 Unknown [id number] 2018 Unknown [employer] P[employer] [id number] 2018-Present [phone] [address] [place] [address] PPO [id number] Social History Date Type Detail Facility Start: 12-13-2021 Tobacco smoking stat [facility] Never smoked tobacco [facility] Start: 01-20-2021 End: 12-18-2022 Alcohol intake Current drinker of alcohol (finding) [facility] Start: 05-01-2021 History SDOH Alcohol Frequency 4 [facility] Start: 05-01-2021 End: 11-02-2022 History SDOH Alcohol Std Drinks 1 [facility] Start: 12-01-2017 History SDOH Alcohol Comment rarely [facility] Start: 05-01-2021 History SDOH Social Connections Phone 5 [facility] Start: 05-01-2021 History SDOH Social Connections Confucianist 3 [facility] Start: 05-01-2021 End: 12-11-2021 History SDOH Transport Med 2 [facility] [facility] mae Start: 1970 Sex Assigned At Female C [facility] Start: 04-21-2021 End: 07-01-2021 Exposure to SARS-CoV-2 (event) Not sure [facility] Start: 12-13-2021 Tobacco use and exposure Smoke less tobacco non-user [facility] Start: 01-15-2020 End: 04-30-2021 History of Social function [facility] mae Start: 01-15-2020 End: 04-30-2021 Social connection and isolation panel [facility] Do you belong to any clubs or organizations such as muslim groups, unions, fraternal or athletic groups, or school groups? Yes [facility] Are you now , , , , never or living with a partner? [facility] How often to you hav e a drink containing alcohol? 2-3 time sa week [facility] How many standard dr inks containing alcohol do you have on a typical day? 1 or 2 [facility] How often do you hav e 6 or more drinks on 1 occasion? Never [facility] How hard is it for y ou to pay for the very basics like food, housing, medical care, and heating Not hard at all [facility] Do you feel stress - tense, restless, nervous, or anxious, or unable to sleep at night because your mind is troubled all the time - these days [OSQ] To some extent [facility] (I/We) worried wheth er (my/our) food would run out before (I/we) got money to buy more. Never true [facility] In the past 12 month s, was there a time when you were not able to pay the mortgage or rent on time? No [facility] Start: 12-16-2019 Gender identity Identifies as female gender (finding) [facility] Start: 12-16-2019 Sexual orientation Heterosexual (brandi damon) [facility] Clinical Notes 10-23-2008 to 12-29-2022 Telephone Encounter - Carolina Reese Ma - 12/29/2022 9:57 AM ESTTelephone Encounter - Carolina Reese Ma - 12/29/2022 9:56 AM ESTTelephone Encounter - Carolina Reese Ma - 2022 8:10 AM EST Note Date & Type Note Facility 12-29-2022 Miscellaneous Notes Pt notified of results via [employer]. Carolina Reese Ma ----- Message from Brennan Contreras MD sent at 12/28/2022 2:16 PM EST ----- Unremarkable labs aside from high cholesterol. Still considered low risk for heart attack and stroke. Recommend low cholesterol diet and exercise. Recheck at yearly physical. The 10-year ASCVD risk score (Cristiano DK, et al., 2019) is: 1.5% Values used to calculate the score: Age: 52 years Sex: Female Is Non- : No Diabetic: No Tobacco smoker: No Systolic Blood Pressure: 134 mmHg Is BP treated: No HDL Cholesterol: 77 mg/dL Total Cholesterol: 231 mg/dL documented in this encounter [facility] 2022 Miscellaneous Notes Pt notified of results via [employer]. Instructed to call in and set up Stress test and echo. Carolina Reese Ma ----- Message from Brennan Contreras MD sent at 2022 8:05 AM EST ----- Normal CXR. Follow up with stress testing and echo as ordered for chest pain. documented in this encounter [facility] 12-18-2022 Note HNO ID: [id number] Author: Marge Xie RT(Martha) Service: ? Author Type: Thermal Molder Type: Progress Notes Filed: 12/18/2022 4:45 PM Note Text: Radiology Service Progress Note PATIENT NAME: Soraida Sanchez DATE OF SERVICE: December 18, 2022 TIME: 4:36 PM PATIENT IDENTITY VERIFICATION COMPLETED USING TWO (2) IDENTIFIERS: Name and Date of confirmed by patient verbally. FALL SCREENING: Has the patient had 2 falls in the last year or 1 fall with injury or currently using an Ambulatory Assistive Device (Walker, Cane, Wheelchair, Crutches, etc.)? No PATIENT GENDER DATA: Female. status: : No status: NO. PATIENT RELEVANT IMPLANT DATA REVIEWED: Yes RADIOLOGY DEPARTMENT: General X-ray: Exam(s) Completed: Chest X-Ray PERIPHERAL IV DATA: Not applicable SIGNED BY: RT Ana(Martha) December 18, 2022 4:36 PM [facility] 12-18-2022 Note HNO ID: [id number] Author: Brennan Contreras MD Service: ? Author Type: Physician Type: Progress Notes Filed: 12/22/2022 8:58 PM Note Text: Chief Complaint Patient presents with: Physical HPI Soraida Sanchez is a 51 year old female who presents here today for Above Complaints. Complaining today of chest pain which occurs during first mile of her runs and then resolves. Pain has been going on for the last 2-3 weeks. Running up to 20 miles per week in November, but is back down to 4-5 miles per week after completing / marathon. Describes pain as pressure sensation in the center of her chest without radiation. Admits to SOB. Denies sweating, nausea, lightheadedness, wheezing. Does improve with walking. Migraines: rare symptoms. gets one every couple months. Treats with OTC excedrin or aleve which works well. No known triggers. Seasonal allergies: admits to feeling hoarse with rhinorrhea this fall without nasal congestion, sneezing, itchy/watery eyes, dry cough. Not taking anything OTC for symptoms. Pap and HPV negative in February through [facility] NANOSCIENCE TECHNICIAN. They ordered mammogram for next year already. Due in February. PHQ-2 / Depression screen He in the past two weeks denies having felt down, depressed, hopeless or with little interest or pleasure in doing things. Past medical history, appointments, medications, allergies reviewed. Previous Medical History PAST MEDICAL HISTORY Diagnosis Date Chronic lower back pain Condyloma acuminatum 2012 Migraine, unspecified, with intractable migraine, so stated, without mention of status migrainosus Migraine Seasonal allergies Previous Surgical History PAST SURGICAL HISTORY Procedure Laterality Date COLONOSCOPY FLX DX W/COLLJ SPEC WHEN PFRMD 02/23/2019 Colonoscopy COLPOSCOPY CERVIX UPPER/ADJACENT VAGINA 1991 Colposcopy/CRYOCAUTERY HPV cervicitis ESOPHAGOGASTRODUODENOSCOPY TRANSORAL DIAGNOSTIC 02/23/2019 EGD PAST SURGICAL HISTORY OF 1997 wisdom teeth extraction Family History FAMILY HISTORY Problem Relation Age of Onset None Mother Hypertension Father Alcohol/Drug Father Breast Cancer Sister 48 other (uterine sarcoma) Sister No Known Problems Sister Breast Cancer Maternal Grandmother x2, late 40's early 50's Cancer Maternal Grandmother bladder Cancer Maternal Grandfather lung Diabetes Maternal Grandfather Heart Paternal Grandmother Emphysema Paternal Grandfather Cancer Paternal Grandfather lymphoma Patient Allergies ALLERGIES Allergen Reactions Bactrim [Sulfametho* Rash Current Medications Current Outpatient Medications on File Prior to Visit Medication Sig Ascorbic Acid (VITAMIN C) 1,000 mg tablet Take 1 tablet by mouth once daily. No current facility-administered medications on file prior to visit. Social History Social History Tobacco Use Smoking status: Never Smokeless tobacco: Never Vaping Use Vaping Use: Never used Substance Use Topics Alcohol use: Yes Comment: rarely Drug use: No Review of Symptoms REVIEW OF SYSTEMS GENERAL: No weight loss, malaise or fevers HEENT: Negative for frequent or significant headaches, No changes in hearing or vision, no nose bleeds or other nasal problems NECK: Negative for lumps, goiter, pain and significant neck swelling RESPIRATORY: Negative for cough, hemoptysis, wheezing, COPD, dyspnea or shortness of breath CARDIOVASCULAR: See HPI GI: No nausea, vomiting, or diarrhea : No history of dysuria, frequency or incontinence NANOSCIENCE TECHNICIAN: Negative for abnormal vaginal bleeding, abnormal vaginal discharge MUSCULOSKELETAL: Negative for joint pain or swelling, back pain or muscle pain SKIN: Negative for lesions, rash, and itching PSYCH: Negative for sleep disturbance, mood disorder and recent psychosocial stressors HEMATOLOGY/LYMPHOLOGY: Negative for prolonged bleeding, bruising easily or swollen nodes ENDOCRINE: Negative for cold or heat intolerance, polyuria, polydipsia and goiter NEURO: No history of headaches, syncope, paralysis, seizures or tremors EXAM: BP 134/80 Pulse 65 Wt 73.9 kg (163 lb) LMP 07/10/2022 (Approximate) SpO2 98% BMI 30.30 kg/m? General Appearance: Well appearing, alert, in no acute distress, well-hydrated, well nourished.. Skin: Skin color, texture, turgor normal, no suspicious rashes or lesions. Head: Normocephalic, no masses, lesions, tenderness or abnormalities. Eyes: Anicteric sclera. Pupils are equally round and reactive to light. Extraocular movements are intact. . Ears: External ears normal, canals clear. Oropharynx: Lips, mucosa, and tongue normal, teeth and gums normal, oropharynx normal. Neck: Supple, no adenopathy; thyroid symmetric, normal size, no bruits. Lungs: Lungs clear to auscultation. No wheezing, rhonchi, rales.. Heart: RRR without murmur, gallop, or rubs. No ectopy. Abdomen: Normal abdominal exam, Abdomen soft, non-tender. Bowel sounds normal. (more content not included)... [facility] 10-29-2022 Note HNO ID: [id number] Author: Marge Xie RT(R) Service: ? Author Type: Thermal Molder Type: Progress Notes Filed: 10/29/2022 4:08 PM Note Text: Radiology Service Progress Note PATIENT NAME: Soraida Sanchez DATE OF SERVICE: October 29, 2022 TIME: 3:50 PM PATIENT IDENTITY VERIFICATION COMPLETED USING TWO (2) IDENTIFIERS: Name and Date of confirmed by patient verbally. FALL SCREENING: Has the patient had 2 falls in the last year or 1 fall with injury or currently using an Ambulatory Assistive Device (Walker, Cane, Wheelchair, Crutches, etc.)? No PATIENT GENDER DATA: Female. status: : No status: NO. PATIENT RELEVANT IMPLANT DATA REVIEWED: Yes RADIOLOGY DEPARTMENT: General X-ray: Exam(s) Completed: Lower Extremity X-Ray(s): Toes, Left 2nd toe PERIPHERAL IV DATA: Not applicable SIGNED BY: Marge Xie, RT(R) October 29, 2022 3:50 PM [facility] 10-29-2022 Note HNO ID: [id number] Author: Yuko Bell APRN.CIRCUIT RECORDER Service: ? Author Type: Nurse Practitioner Type: Progress Notes Filed: 10/29/2022 5:21 PM Note Text: 10/29/2022 Patient presents with: Pain: In bilateral legs, started in June. Has been having numbness to right upper leg on and off since September. SUBJECTIVE: This is a 51 year old that is here today for Above Complaints. In June started with pain pain in 2 nd toe left foot. Noted it when running. Continues to have intermittent dull pain. Sharp pain when had pedicure not long ago. Able to continue her half marathons without difficulty. Denies past injury/surgery, redness, warmth, swelling or bruising Developed numbness and tingling sensation to right outer thigh after running half marathon. Is intermittent. Not interfering with her running. Denies hx of past injury/surgery, back pain, saddle anaesthesia, redness, warmth, swelling, back pain, leg weakness, urinary/bowel incontinence or inability PAST MEDICAL HISTORY Diagnosis Date Condyloma acuminatum 2012 Migraine, unspecified, with intractable migraine, so stated, without mention of status migrainosus Migraine Seasonal allergies ALLERGIES Bactrim [Sulfamethoxazole-Trimethoprim] MEDICATIONS Current Outpatient Medications Medication Sig Ascorbic Acid (VITAMIN C) 1,000 mg tablet Take 1 tablet by mouth once daily. No current facility-administered medications for this visit. Medications and allergies reviewed by this provider. SOCIAL HISTORY Social History Tobacco Use Smoking status: Never Smokeless tobacco: Never Substance Use Topics Alcohol use: Yes Comment: rarely Drug use: No REVIEW OF SYSTEMS All other reviewed and negative other than HPI. OBJECTIVE: BP 122/78 Pulse 76 Resp 18 Wt 71 kg (156 lb 9.6 oz) LMP 06/27/2021 SpO2 98% BMI 29.11 kg/m? . Vital signs reviewed by this provider. APPEARANCE Well appearing, alert, in no acute distress, well-hydrated, well nourished. EYES PERRLA, conjunctiva and sclera normal. BACK: Normal exam, no pain to palpation, good flexion and extension EXTREMITIES Extremities normal, No deformities, No skin discoloration, No edema, and Normal pulses bilaterally. NEURO Reflexes symmetrical, Normal gait, No involuntary motions., and negative findings: muscle tone normal, muscle strength normal, sensation to light touch and pinprick normal, reflexes normal and symmetric, plantar response downgoing bilaterally SKIN Skin color, texture, turgor normal, no suspicious rashes or lesions to exposed skin Shingrix Vaccine(1 of 2) Never done Covid-19 Vaccine(3 - Pfizer series) due on 01/09/2021 Depression Assessment Never done Pap Testing due on 08/10/2022 HPV Testing due on 08/10/2022 Influenza Vaccine(1) due on 10/10/2022 Mammogram Screening due on 02/24/2023 Diabetes Screening due on 12/13/2024 Lipid Screening due on 06/28/2026 DTaP,Tdap,Td Vaccine(3 - Td or Tdap) due on 04/10/2028 Colorectal Cancer Screening due on 02/23/2029 Hepatitis B Vaccine Completed Hepatitis C Screening Completed HIV Screening Completed ASSESSMENT/PLAN: 1. Pain of toe of left foot - ICD9: 729.5, ICD10: M79.675 (primary diagnosis) - possibly stress fracture - no red flag symptoms or exam findings - red flag symptoms discussed, verbalizes understanding - XR TOE AP/LAT/OBL LEFT - may use OTC topical/oral pain relievers as directed on packaging. Ice or heat for 15 minutes at a time 2. Numbness and tingling of leg - ICD9: 782.0, ICD10: R20.0, R20.2 - consider meralgia paresthetica - no red flag symptoms or exam findings - red flag symptoms discussed, verbalizes understanding - discussed with patient typically self-limiting and usually resolves spontaneously - may use OTC pain redelivers as directed on packaging - avoid tight garments and belts - follow-up if symptoms persist, to ER with red flag symptoms Yuko PodlogCRISTIAN peterson.CIRCUIT RECORDER Prescription instructions reviewed with patient as applicable. Patient advised if symptoms do not improve or if symptoms worsen sooner, to contact their primary care physician. Potential red flag symptoms discussed with the patient. Reviewed appropriate action plan to take if red flag symptoms occur. Patient agreeable to treatment plan. I spent a total of 25 minutes on the date of the service which included preparing to see the patient, [id number] patient care, completing clinical documentation, obtaining and/or reviewing separately obtained history, performing a medically appropriate examination, counseling and educating the patient/family/caregiver, and ordering medications, tests, or procedures. [facility] 10-29-2022 History of Present illness Narrative 10/29/2022 Patient presents with: Pain: In bilateral legs, started in June. Has been having numbness to right upper leg on and off since September. SUBJECTIVE: This is a 51 year old that is here today for Above Complaints. In June started with pain pain in 2 nd toe left foot. Noted it when running. Continues to have intermittent dull pain. Sharp pain when had pedicure not long ago. Able to continue her half marathons without difficulty. Denies past injury/surgery, redness, warmth, swelling or bruising Developed numbness and tingling sensation to right outer thigh after running half marathon. Is intermittent. Not interfering with her running. Denies hx of past injury/surgery, back pain, saddle anaesthesia, redness, warmth, swelling, back pain, leg weakness, urinary/bowel incontinence or inability PAST MEDICAL HISTORY Diagnosis Date Condyloma acuminatum 2012 Migraine, unspecified, with intractable migraine, so stated, without mention of status migrainosus Migraine Seasonal allergies ALLERGIES Bactrim [Sulfamethoxazole-Trimethoprim] MEDICATIONS Current Outpatient Medications Medication Sig Ascorbic Acid (VITAMIN C) 1,000 mg tablet Take 1 tablet by mouth once daily. No current facility-administered medications for this visit. Medications and allergies reviewed by this provider. SOCIAL HISTORY Social History Tobacco Use Smoking status: Never Smokeless tobacco: Never Substance Use Topics Alcohol use: Yes Comment: rarely Drug use: No REVIEW OF SYSTEMS All other reviewed and negative other than HPI. OBJECTIVE: BP 122/78 Pulse 76 Resp 18 Wt 71 kg (156 lb 9.6 oz) LMP 06/27/2021 SpO2 98% BMI 29.11 kg/m . Vital signs reviewed by this provider. APPEARANCE Well appearing, alert, in no acute distress, well-hydrated, well nourished. EYES PERRLA, conjunctiva and sclera normal. BACK: Normal exam, no pain to palpation, good flexion and extension EXTREMITIES Extremities normal, No deformities, No skin discoloration, No edema, and Normal pulses bilaterally. NEURO Reflexes symmetrical, Normal gait, No involuntary motions., and negative findings: muscle tone normal, muscle strength normal, sensation to light touch and pinprick normal, reflexes normal and symmetric, plantar response downgoing bilaterally SKIN Skin color, texture, turgor normal, no suspicious rashes or lesions to exposed skin Shingrix Vaccine(1 of 2) Never done Covid-19 Vaccine(3 - Pfizer series) due on 01/09/2021 Depression Assessment Never done Pap Testing due on 08/10/2022 HPV Testing due on 08/10/2022 Influenza Vaccine(1) due on 10/10/2022 Mammogram Screening due on 02/24/2023 Diabetes Screening due on 12/13/2024 Lipid Screening due on 06/28/2026 DTaP,Tdap,Td Vaccine(3 - Td or Tdap) due on 04/10/2028 Colorectal Cancer Screening due on 02/23/2029 Hepatitis B Vaccine Completed Hepatitis C Screening Completed HIV Screening Completed ASSESSMENT/PLAN: 1. Pain of toe of left foot - ICD9: 729.5, ICD10: M79.675 (primary diagnosis) - possibly stress fracture - no red flag symptoms or exam findings - red flag symptoms discussed, verbalizes understanding - XR TOE AP/LAT/OBL LEFT - may use OTC topical/oral pain relievers as directed on packaging. Ice or heat for 15 minutes at a time 2. Numbness and tingling of leg - ICD9: 782.0, ICD10: R20.0, R20.2 - consider meralgia paresthetica - no red flag symptoms or exam findings - red flag symptoms discussed, verbalizes understanding - discussed with patient typically self-limiting and usually resolves spontaneously - may use OTC pain redelivers as directed on packaging - avoid tight garments and belts - follow-up if symptoms persist, to ER with red flag symptoms Yuko Podlogkristen, CRO.CIRCUIT RECORDER Prescription instructions reviewed with patient as applicable. Patient advised if symptoms do not improve or if symptoms worsen sooner, to contact their primary care physician. Potential red flag symptoms discussed with the patient. Reviewed appropriate action plan to take if red flag symptoms occur. Patient agreeable to treatment plan. I spent a total of 25 minutes on the date of the service which included preparing to see the patient, [id number] patient care, completing clinical documentation, obtaining and/or reviewing separately obtained history, performing a medically appropriate examination, counseling and educating the patient/family/caregiver, and ordering medications, tests, or procedures. documented in this encounter [facility] 12-16-2021 Miscellaneous Notes Patient notified and verbalized understanding Christine Almonte Cma Please call patient and let her know her blood work is normal. Other than a minimal curvature to the left of the mid to lower thoracic spine xray's are normal. Yuok Bell APRN.MANAV documented in this encounter [facility] 12-13-2021 History of Present illness Narrative 12/13/2021 Patient presents with: Back Pain: Lower/middle back pain on right side SUBJECTIVE: This is a 50 year old that is here today for Above Complaints. ONSET: years ago LOCATION:mid to lower back on the right side DURATION: intermittent CHARACTERISTICS: aching, feel bruised if pushing on it AGGRAVATING FEATURES: sitting and lying down ALLEVIATING FEATURES: running. Has not tried any OTC medications RADIATION: none Denies past/present injury or surgery, extremity numbness, tingling, weakness, saddle anaesthesia, dysuria, hematuria, urinary/bowel incontinence or inability. Frequently nauseated in the morning. Also with some intermittent right lower quad pain for three weeks. Pain can be sharp or aching. No aggravating features. Admits to feeling gassy. Denies weight loss, fevers, chills, vomiting, constipation, diarrhea, hematochezia or melana. Component Latest Ref Rng & Units 12/13/2021 GLUCOSE UA (POCT) Negative mg/dL Negative BILIRUBIN UA (POCT) Negative Negative KETONE UA (POCT) Negative mg/dL Negative SPECIFIC GRAVITY UA (POCT) 1.005 - 1.030 1.015 HEMOGLOBIN/BLOOD UA (POCT) Negative Negative PH UA (POCT) 4.5 - 8.0 6.5 PROTEIN UA (POCT) Negative mg/dL Negative UROBILINOGEN UA (POCT) Normal E.U./dL 0.2 NITRITE UA (POCT) Negative Negative LEUKOCYTES UA (POCT) Negative Negative COLOR UA (POCT) Light yellow CLARITY UA (POCT) Slightly Cloudy PAST MEDICAL HISTORY Diagnosis Date Condyloma acuminatum 2012 Migraine, unspecified, with intractable migraine, so stated, without mention of status migrainosus Migraine Seasonal allergies ALLERGIES Bactrim [Sulfamethoxazole-Trimethoprim] MEDICATIONS Current Outpatient Medications Medication Sig Ascorbic Acid (VITAMIN C) 1,000 mg tablet Take 1 tablet by mouth once daily. No current facility-administered medications for this visit. Medications and allergies reviewed by this provider. SOCIAL HISTORY Social History Tobacco Use Smoking status: Never Smokeless tobacco: Never Substance Use Topics Alcohol use: Yes Comment: rarely Drug use: No REVIEW OF SYSTEMS All other reviewed and negative other than HPI. OBJECTIVE: BP 122/84 Pulse 66 Resp 16 Wt 73.1 kg (161 lb 3.2 oz) LMP 06/27/2021 SpO2 97% BMI 29.97 kg/m . Vital signs reviewed by this provider. APPEARANCE Well appearing, alert, in no acute distress, well-hydrated, well nourished. EYES conjunctiva and sclera normal. HEART RRR with normal S1 and S2, no murmurs, no gallops, no JVD appreciated LUNG clear to auscultation ABDOMEN bowel sounds normoactive, no bruits, soft, non-tender, non-distended, without organomegaly or palpable masses BACK: Normal exam, no pain to palpation, good flexion and extension, negative SLR test EXTREMITIES Extremities normal, No deformities, No skin discoloration, and No edema NEURO Awake, alert and oriented x 3, Reflexes symmetrical, Normal gait, No involuntary motions., and negative findings: muscle tone normal, muscle strength normal, plantar response downgoing bilaterally, normal sensation SKIN Skin color, texture, turgor normal, no suspicious rashes or lesions to exposed skin SHINGRIX VACCINE(1 of 2) Never done COVID-19 VACCINE(3 - Booster for Pfizer series) due on 01/09/2021 DEPRESSION ASSESSMENT Never done INFLUENZA(1) due on 10/10/2021 MAMMOGRAM due on 02/19/2022 PAP TESTING due on 08/10/2022 HPV TESTING due on 08/10/2022 DIABETES SCREEN due on 12/20/2023 LIPID SCREEN due on 06/28/2026 DTAP,TDAP,TD(3 - Td or Tdap) due on 04/10/2028 COLORECTAL CANCER SCREENING due on 02/23/2029 HEPATITIS B Completed HEPATITIS C SCREENING Completed HIV SCREENING Completed ASSESSMENT/PLAN: 1. Chronic right-sided back pain, unspecified back location - ICD9: 724.5, 338.29, ICD10: M54.9, G89.29 (primary diagnosis) Mechanical low back pain - no red flag symptoms or exam finding - red flag symptoms discussed, verbalizes understanding - Warm moist heat for 20 min three times a day - UA today negative - Xrays- see orders - Patient given instructions use of intermittent rest, back care exercise program, weight loss, improved posture, proper lifting techniques, intermittent use of heat, and avoiding sleeping on a heating pad - UA DIP, URINE (POC) - XR LUMBAR GENERAL 3V AP/LAT/L5-S1 - XR THORACIC GENERAL 3V AP/LAT/SWIMMERS - may use OTC pain relievers, topical or patches as directed on packaging - offered PT referral- declines at this time - follow-up pending xrays to ER with red flag symptoms 2. Abdominal discomfort in right lower quadrant - ICD9: 789.03, ICD10: R10.31 - no red flag symptoms or exam findings - may use OTC pain relievers as directed on packaging - red flag symptoms discussed - COMP METABOLIC PANEL - CBC + DIFF - follow-up if symptoms persist to ER with red flag symptoms 3. Nausea - ICD9: 787.02, ICD10: R11.0 - possibly related to reflux - recommend trying Pepcid OTC before bed - elevated head of bed and avoid eating 3 hours prior to bed - follow-up if symptoms fail to improve Yuko Rameshlogkristen, CRO.CIRCUIT RECORDER Prescription instructions reviewed with patient as applicable. Patient advised if symptoms do not improve or if symptoms worsen sooner, to contact their primary care physician. Potential red flag symptoms discussed with the patient. Reviewed appropriate action plan to take if red flag symptoms occur. Patient agreeable to treatment plan. I spent a total of 30 minutes on the date of the service which included preparing to see the patient, [id number] patient care, completing clinical documentation, obtaining and/or reviewing separately obtained history, performing a medically appropriate examination, counseling and educating the patient/family/caregiver, and ordering medications, tests, or procedures. documented in this encounter [facility] 07-01-2021 History of Present illness Narrative Chief Complaint Patient presents with: Physical HPI Soraida Sanchez is a 50 year old female who presents here today for annual physical. Patient has been in good health without hospitalizations or ER visits. Notes intermittent right flank pain which is mild today. Seems to worsen once per month without cause. Improves with exercise. Not taking anything OTC for symptoms. Denies urinary complaint. States that her migraines have been mild/rare. Last headache was a few months ago. Previously linked with her menstrual cycles and has been going months between periods. LMP 06/27/21 and last before that was in December. No allergy complaints today. Down 10 lbs in the last 6 months. Walking 5K every day in June. Working on healthy diet. Would like to get down to 120 lbs. Due for COVID booster, but is not interested today. Given information on Shingrix vaccine as well. Patient will consider. Past medical history, appointments, medications, allergies reviewed. Previous Medical History PAST MEDICAL HISTORY Diagnosis Date Condyloma acuminatum 2012 Migraine, unspecified, with intractable migraine, so stated, without mention of status migrainosus Migraine Seasonal allergies Previous Surgical History PAST SURGICAL HISTORY Procedure Laterality Date COLONOSCOPY FLX DX W/COLLJ SPEC WHEN PFRMD 02/23/2019 Colonoscopy COLPOSCOPY CERVIX UPPER/ADJACENT VAGINA 1991 Colposcopy/CRYOCAUTERY HPV cervicitis ESOPHAGOGASTRODUODENOSCOPY TRANSORAL DIAGNOSTIC 02/23/2019 EGD PAST SURGICAL HISTORY OF 1997 wisdom teeth extraction Family History FAMILY HISTORY Problem Relation Age of Onset None Mother Hypertension Father Alcohol/Drug Father Breast Cancer Sister 48 Breast Cancer Maternal Grandmother x2, late 40's early 50's Cancer Maternal Grandmother bladder Cancer Maternal Grandfather lung Diabetes Maternal Grandfather Heart Paternal Grandmother Emphysema Paternal Grandfather Cancer Paternal Grandfather lymphoma Patient Allergies ALLERGIES Allergen Reactions Bactrim [Sulfametho* Rash Current Medications Current Outpatient Medications on File Prior to Visit Medication Sig Ascorbic Acid (VITAMIN C) 1,000 mg tablet Take 1 tablet by mouth once daily. No current facility-administered medications on file prior to visit. Social History Social History Tobacco Use Smoking status: Never Smoker Smokeless tobacco: Never Used Substance Use Topics Alcohol use: Yes Comment: rarely Drug use: No Review of Symptoms REVIEW OF SYSTEMS GENERAL: No weight loss, malaise or fevers HEENT: Negative for frequent or significant headaches, No changes in hearing or vision, no nose bleeds or other nasal problems NECK: Negative for lumps, goiter, pain and significant neck swelling RESPIRATORY: Negative for cough, hemoptysis, wheezing, COPD, dyspnea or shortness of breath CARDIOVASCULAR: Negative for chest pain, leg swelling, hypertension, CHF or palpitations GI: No nausea, vomiting, or diarrhea : No history of dysuria, frequency or incontinence NANOSCIENCE TECHNICIAN: Negative for abnormal vaginal bleeding, abnormal vaginal discharge MUSCULOSKELETAL: Negative for joint pain or swelling, back pain or muscle pain SKIN: Negative for lesions, rash, and itching EXAM: BP 130/70 Pulse 61 Resp 16 Ht 156.2 cm (5' 1.5 ) Wt 69.2 kg (152 lb 9.6 oz) LMP 06/27/2021 SpO2 98% BMI 28.37 kg/m General Appearance: Well appearing, alert, in no acute distress, well-hydrated, well nourished.. Skin: Skin color, texture, turgor normal, no suspicious rashes or lesions. Head: Normocephalic, no masses, lesions, tenderness or abnormalities. Eyes: Anicteric sclera. Pupils are equally round and reactive to light. Extraocular movements are intact. . Ears: External ears normal, canals clear. Neck: Supple, no adenopathy; thyroid symmetric, normal size, no bruits. Lungs: Lungs clear to auscultation. No wheezing, rhonchi, rales.. Heart: RRR without murmur, gallop, or rubs. No ectopy. Abdomen: Normal abdominal exam, Abdomen soft, non-tender. Bowel sounds normal. No masses, organomegaly. Extremities: No deformities, edema, skin discoloration, clubbing or cyanosis. Good capillary refill. Musculoskeletal: no joint pain or swelling. No TTP over right flank or lower back. Health Maintenance List SHINGRIX VACCINE(1 of 2) Never done COVID-19 VACCINE(3 - Booster for Pfizer series) due on 04/14/2021 INFLUENZA(Season Ended) due on 10/10/2021 MAMMOGRAM due on 02/19/2022 DEPRESSION SCREENING due on 06/28/2022 PAP TESTING due on 08/10/2022 HPV TESTING due on 08/10/2022 DIABETES SCREEN due on 12/20/2023 LIPID SCREEN due on 06/28/2026 DTAP,TDAP,TD(3 - Td or Tdap) due on 04/10/2028 COLORECTAL CANCER SCREENING due on 02/23/2029 HEPATITIS C SCREENING Completed HIV SCREENING Completed MENINGOCOCCAL CONJUGATE Aged Out Data reviewed Component Latest Ref Rng & Units 05/02/2020 2020 2020 06/28/2021 11:18 AM 11:18 AM Protein, Total 6.3 - 8.0 g/dL 7.1 6.9 Albumin 3.9 - 4.9 g/dL 4.4 4.3 Calcium 8.5 - 10.2 mg/dL 9.1 9.6 Bilirubin, Total 0.2 - 1.3 mg/dL 1.7 (H) 1.2 1.1 Alkaline Phosphatase 34 - 123 U/L 55 65 AST 13 - 35 U/L 20 24 Glucose 74 - 99 mg/dL 85 81 BUN 7 - 21 mg/dL 12 12 Creatinine 0.58 - 0.96 mg/dL 0.76 0.70 Sodium 136 - 144 mmol/L 140 136 Potassium 3.7 - 5.1 mmol/L 4.0 4.3 Chloride 97 - 105 mmol/L 104 102 CO2 22 - 30 mmol/L 27 22 Anion Gap 9 - 18 mmol/L 9 12 ALT 7 - 38 U/L 17 29 eGFR- >60 >60 eGFR-All Other Races . >60 >60 WBC 3.70 - 11.00 k/uL 5.82 RBC 3.90 - 5.20 m/uL 4.46 Hemoglobin 11.5 - 15.5 g/dL 13.4 Hematocrit 36.0 - 46.0 % 40.6 MCV 80.0 - 100.0 fL 91.0 MCH 26.0 - 34.0 pG 30.0 MCHC 30.5 - 36.0 g/dL 33.0 RDW-CV 11.5 - 15.0 % 13.1 Platelet Count 150 - 400 k/uL 236 MPV 9.0 - 12.7 fL 9.7 Absolute nRBC <0.01 k/uL <0.01 Cholesterol, Total <200 mg/dL 190 Triglyceride <150 mg/dL 47 HDL Cholesterol >39 mg/dL 64 Non HDL Cholesterol <130 mg/dL 126 Fasting Time hrs 14 VLDL Cholesterol <30 mg/dL 9 TC:HDL Ratio <5.10 2.97 LDL Cholesterol <100 mg/dL 117 (H) LDL:HDL Ratio <2.54 1.83 Total Cholesterol, Nonfasting <200 mg/dL 188 Triglycerides, Nonfasting <150 mg/dL 44 HDL Cholesterol, Nonfasting >39 mg/dL 71 LDL Cholesterol, Nonfasting <100 mg/dL 108 (H) Non HDL Cholesterol, Nonfasting <130 mg/dL 117 VLDL Cholesterol, Nonfasting <30 mg/dL 9 Total Chol/HDL Ratio, Nonfasting <5.10 mg/dL 2.65 LDL/HDL Ratio, Nonfasting <2.54 mg/dL 1.52 HIV 12 Combo (Ag/Ab) Non Reactive Non Reactive HIV-1/2 AB Test Not Indicated HIV Interpretation Negative Bilirubin, Unconjug <1.4 mg/dL 1.0 Bilirubin, Conjug <0.2 mg/dL 0.2 (H) Hep C Antibody IA Negative Negative The 10-year ASCVD risk score (Luisana GAI Jr., et al., 2013) is: 1.1% Values used to calculate the score: Age: 50 years Sex: Female Is Non- : No Diabetic: No Tobacco smoker: No Systolic Blood Pressure: 130 mmHg Is BP treated: No HDL Cholesterol: 64 mg/dL Total Cholesterol: 190 mg/dL ASSESSMENT/PLAN: 1. Annual physical exam - ICD9: V70.0, ICD10: Z00.00 (primary diagnosis) - Counseled on healthy diet and regular exercise - Calcium intake with supplements or by diet of 1000 mg/day for under 50, 9124-4001 mg/day for 50+ - Discussed need and benefit for weight loss. BMI 28.37 kg/(m^2) - Follow up for annual exam in one year 2. Migraine without aura and without status migrainosus, not intractable - ICD9: 346.10, ICD10: G43.009 Rare headaches since perimenopausal. Will monitor. 3. Hyperbilirubinemia - ICD9: 782.4, ICD10: E80.6 Resolved. 4. Seasonal allergies - ICD9: 477.9, ICD10: J30.2 Mild symptoms this year. Recommend OTC antihistamines PRN. Brennan Contreras MD documented in this encounter [facility] 05-01-2021 History of Present illness Narrative Chief Complaint Patient presents with: ED Follow-up: tingling in left arm up into the left ear HPI Soraida Sanchez is a 50 year old female who presents here today for ER Follow Up.. 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 [place] her left arm and left side of her face go numb. Denied headache or other symptoms of stroke. Found to be hypertensive with BP 173/127 and tachycardia to 117 on arrival. Positive for decreased sensation to light touch on exam. CT/CTA head/neck negative for acute findings. Basic labs unremarkable. MRI brain negative/normal. Discharged home with recommendation to follow up with our office. Since discharge, had recurrent paresthesias in the left arm 2-3 days after her ER visit which lasted less than 30 minutes. Had her usual headache the day following ER visit, not a migraine. No symptoms since and feels back to her baseline. Also notes that her HR monitor on her treadmill and her watch are getting different readings. Treadmill will show HR into the 180-190 while watch reads 130-140. Has not checked manually to confirm. Feels fine while this is going on. Past medical history, appointments, medications, allergies reviewed. Previous Medical History PAST MEDICAL HISTORY Diagnosis Date Condyloma acuminatum 2012 Migraine, unspecified, with intractable migraine, so stated, without mention of status migrainosus Migraine Seasonal allergies Previous Surgical History PAST SURGICAL HISTORY Procedure Laterality Date COLONOSCOP W/ OR W/O [facility] SPEC 02/23/2019 Colonoscopy COLPOSCOPY (VAGINOSCOPY) 1991 Colposcopy/CRYOCAUTERY HPV cervicitis EGD W/O OR W/BRUSH/WASH 02/23/2019 EGD PAST SURGICAL HISTORY OF 1997 wisdom teeth extraction Family History FAMILY HISTORY Problem Relation Age of Onset None Mother Hypertension Father Alcohol/Drug Father Breast Cancer Sister 48 Breast Cancer Maternal Grandmother x2, late 40's early 50's Cancer Maternal Grandmother bladder Cancer Maternal Grandfather lung Diabetes Maternal Grandfather Heart Paternal Grandmother Emphysema Paternal Grandfather Cancer Paternal Grandfather lymphoma Patient Allergies ALLERGIES Allergen Reactions Bactrim [Sulfametho* Rash Current Medications Current Outpatient Medications on File Prior to Visit Medication Sig Ascorbic Acid (VITAMIN C) 1,000 mg tablet Take 1 tablet by mouth once daily. No current facility-administered medications on file prior to visit. Social History Social History Tobacco Use Smoking status: Never Smoker Smokeless tobacco: Never Used Substance Use Topics Alcohol use: Yes Comment: rarely Drug use: No Review of Symptoms REVIEW OF SYSTEMS See HPI EXAM: BP (P) 128/66 (BP Site: Left Arm, BP Position: Sitting, BP Cuff Size: Regular Adult) Pulse (P) 66 Resp (P) 16 Wt (P) 71.2 kg (157 lb) LMP 08/01/2017 (Exact Date) BMI (P) 30.16 kg/m General Appearance: Well appearing, alert, in no acute distress, well-hydrated, well nourished.. Skin: Skin color, texture, turgor normal, no suspicious rashes or lesions. Lungs: Lungs clear to auscultation. No wheezing, rhonchi, rales.. Heart: RRR without murmur, gallop, or rubs. No ectopy. Neurologic: Negative findings: speech normal, mental status intact, cranial nerves 2-12 intact, muscle tone normal, muscle strength normal, sensation to light touch and pinprick normal, reflexes normal and symmetric. Health Maintenance List SHINGRIX VACCINE(1 of 2) Never done INFLUENZA(1) due on 10/10/2020 COVID-19 VACCINE(3 - Booster for Pfizer series) due on 04/14/2021 DEPRESSION SCREENING due on 05/02/2021 MAMMOGRAM due on 02/19/2022 PAP TESTING due on 08/10/2022 HPV TESTING due on 08/10/2022 DIABETES SCREEN due on 12/20/2023 LIPID SCREEN due on 05/02/2025 DTAP,TDAP,TD(3 - Td or Tdap) due on 04/10/2028 COLORECTAL CANCER SCREENING due on 02/23/2029 HEPATITIS C SCREENING Completed HIV SCREENING Completed MENINGOCOCCAL CONJUGATE Aged Out ASSESSMENT/PLAN: 1. Paresthesia of left arm - ICD9: 782.0, ICD10: R20.2 (primary diagnosis) Normal exam today. Symptoms improved in the last 3 days. Discussed further workup with EMG which she is hesitant to do. Advised to call with recurrent symptoms and would order this study. Red flags for re-assessment reviewed with patient in detail. 2. Paresthesia - ICD9: 782.0, ICD10: R20.2 See above. I spent a total of 30 minutes on the date of the service which included preparing to see the patient, [id number] patient care, completing clinical documentation, obtaining and/or reviewing separately obtained history, performing a medically appropriate examination, counseling and educating the patient/family/caregiver and ordering medications, tests, or procedures. Brennan Contreras MD documented in this encounter [facility] documented as of this encounter (statuses as of 05/01/2021) [facility] History of Past illness Narrative* Problem Noted Date Resolved Date Excessive or frequent menstruation 10/23/2008 05/25/2012 documented as of this encounter (statuses as of 07/01/2021) [facility] History of Past illness Narrative* Problem Noted Date Resolved Date Excessive or frequent menstruation 10/23/2008 05/25/2012 documented as of this encounter (statuses as of 12/13/2021) [address]14-2009 History of Past illness Narrative* Problem Noted Date Resolved Date Excessive or frequent menstruation 10/23/2008 05/25/2012 documented as of this encounter (statuses as of 12/16/2021) [address]-2009 History of Past illness Narrative* Problem Noted Date Diagnosed Date Resolved Date Excessive or frequent menstruation 10/23/2008 05/25/2012 documented as of this encounter (statuses as of 10/30/2022) [address] History of Past illness Narrative* Problem Noted Date Diagnosed Date Resolved Date Excessive or frequent menstruation 10/23/2008 05/25/2012 documented as of this encounter (statuses as of 2022) [address]-2009 History of Past illness Narrative* Problem Noted Date Diagnosed Date Resolved Date Excessive or frequent menstruation 10/23/2008 05/25/2012 documented as of this encounter (statuses as of 12/24/2022) [facility]09-14-2009 History of Past illness Narrative* Problem Noted Date Diagnosed Date Resolved Date Excessive or frequent menstruation 10/23/2008 05/25/2012 documented as of this encounter (statuses as of 12/29/2022) [facility] Diagnosis Paresthesia of left arm- Primary Disturbance of skin sensation Paresthesia Disturbance of skin sensation documented [facility] this encounter [facility] Diagnosis Annual physical exam- Primary Routine general medical examination at a health care facility Migraine without aura and without status migrainosus, not intractable Migraine without aura, without mention of intractable migraine without mention of status migrainosus Hyperbilirubinemia Jaundice, unspecified, not of Seasonal allergies Allergic rhinitis, cause unspecified documented in this encounter [facility] Diagnosis Chronic right-sided back pain, unspecified back location- Primary Abdominal discomfort in right lower quadrant Abdominal pain, right lower quadrant Nausea Nausea alone documented in this encounter [facility] Diagnosis Pain of toe of left foot- Primary Pain in limb Numbness and tingling of leg Disturbance of skin sensation documented in this encounter [facility] Diagnosis Exertional chest pain Chest pain, unspecified documented in this encounter [facility] for referral (narrative)* Diagnostic Procedure Only (Routine) - Closed Specialty Diagnoses / Procedures Referred By Contac t Referred To Contact XR IMAGING Diagnoses Chronic right-sided back pain, unspecified back location Procedures XR THORACIC GENERAL 3V AP/LAT/SWIMMERS RADEX SPINE THORACIC 3 VIEWS Yuko Bell APRN.CNP [address] [place] [address] Xr Imaging Referral ID Status Reason Start Date Expiration Date V isits Requested Visits Authorized [id number] Closed Auto-Generate d Referral 12/13/2021 01/12/2023 1 1 * Diagnostic Procedure Only (Routine) - Closed Specialty Diagnoses / Procedures Referred By Contac t Referred To Contact XR IMAGING Diagnoses Chronic right-sided back pain, unspecified back location Procedures XR LUMBAR GENERAL 3V AP/LAT/L5-S1 RADEX SPINE LUMBOSACRAL 2/3 VIEWS PodlogarYuko APRN.CIRCUIT RECORDER [address] [place] [address] Xr Imaging Referral ID Status Reason Start Date Expiration Date V isits Requested Visits Authorized [id number] Closed Auto-Generate d Referral 12/13/2021 01/12/2023 1 1 [facility] for referral (narrative)* Diagnostic Procedure Only (Routine) - Closed Specialty Diagnoses / Procedures Referred By Contac t Referred To Contact XR IMAGING Diagnoses Pain of toe of left foot Procedures XR TOE AP/LAT/OBL LEFT RADEX TOE MINIMUM 2 VIEWS PodlogYuko peterson APRN.CNP [address] [place] [address] [place] [address] Referral ID Status Reason Start Date Expiration Date V isits Requested Visits Authorized [id number] Closed Auto-Generate d Referral 10/29/2022 11/28/2023 1 1 [facility] for visit Narrative* Diagnostic Procedure Only (Routine) - Closed Specialty Diagnoses / Procedures Referred By Contact Referred To Contact Cardiology / [facility] Diagnoses Chest pain, unspecified Exertional chest pain [R07.9] Procedures CV STRS TST XERS&/OR RX CONT ECG W/SI&R EXERCISE STRESS ECG (WITHOUT IMAGING) Brennan Contreras MD [address] [place] [address] Card Lab [facility] [address] [place] [address] Referral ID Status Reason Start Date Expiration Date Visits Re quested Visits Authorized [id number] Closed 12/21/2022 02/08/2023 1 1 [facility] Advance Directives Documents on File Type Date Recorded 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 Advance Directive(s) 02/23/2019 8:23 AM Advance Directive(s) 02/23/2019 8:21 AM Documents on File Type Date Recorded 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 Advance Directive(s) 02/23/2019 8:21 AM Documents on File Type Date Recorded 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 Advance Directive(s) 02/23/2019 8:21 AM Summary Purpose Family History No Family History Records FoundNo Family History Records Found Additional Source Comments Source Comments (unrecognize d section and content) In the event this informatio n is protected by the Federal Confidentiality of Alcohol and Drug Abuse Patient Records regulations: The Federal rules restrict any use of the information to criminally investigate or prosecute any alcohol or drug abuse patient.[facility] the event this information is protected by the Federal Confidentiality of Alcohol and Drug Abuse Patient Records regulations: The Federal rules restrict any use of the information to criminally investigate or prosecute any alcohol or drug abuse patient.[facility] Hospital[facility] the event this information is protected by the Federal Confidentiality of Alcohol and Drug Abuse Patient Records regulations: The Federal rules restrict any use of the information to criminally investigate or prosecute any alcohol or drug abuse patient.[facility] HospitalIn the event this information is protected by the Federal Confidentiality of Alcohol and Drug Abuse Patient Records regulations: The Federal rules restrict any use of the information to criminally investigate or prosecute any alcohol or drug abuse patient.[facility] HospitalIn the event this information is protected by the Federal Confidentiality of Alcohol and Drug Abuse Patient Records regulations: The Federal rules restrict any use of the information to criminally investigate or prosecute any alcohol or drug abuse patient.[facility] HospitalIn the event this information is protected by the Federal Confidentiality of Alcohol and Drug Abuse Patient Records regulations: The Federal rules restrict any use of the information to criminally investigate or prosecute any alcohol or drug abuse patient.[facility] HospitalIn the event this information is protected by the Federal Confidentiality of Alcohol and Drug Abuse Patient Records regulations: The Federal rules restrict any use of the information to criminally investigate or prosecute any alcohol or drug abuse patient.[facility] HospitalIn the event this information is protected by the Federal Confidentiality of Alcohol and Drug Abuse Patient Records regulations: The Federal rules restrict any use of the information to criminally investigate or prosecute any alcohol or drug abuse patient.[facility] Reason for Visit (unrecogniz ed section and content) Specialty Diagnoses / Procedures Referred By Contact Referred To Contact Family Practice / FAMILY MEDICINE Diagnoses ER F/U [facility] 04/25/2021 Procedures 4C EST HOSP/ER FU Brennan Contreras MD [address] [place] [address] [place] [address] [place] [address] Referral ID Status Reason Start Date Expiration Date Visits Re quested Visits Authorized [id number] Closed 02/09/2021 02/08/2022 1 1 Reason Comments Physical Specialty Diagnoses / Procedures Referred By Contac t Referred To Contact Family Practice / FAMILY MEDICINE Diagnoses Physical Procedures 4C EST WELL Self Brennan Contreras MD [address] [place] [address] Referral ID Status Reason Start Date Expiration Date V isits Requested Visits Authorized [id number] Authorized 07/01/2021 02/08/2022 99 99 Reason Comments Back Pain Lower/middle back pa in on right side Specialty Diagnoses / Procedures Referred By Contac t Referred To Contact Family Medicine / FAMILY MEDICINE Diagnoses Migraine without aura and without status migrainosus, not intractable primary care Procedures OFFICE/OUTPATIENT ESTABLISHED MOD MDM 30-39 MIN 4C EST Self PodlogYuko peterson APRN.CIRCUIT RECORDER [address] [place] [address] Referral ID Status Reason Start Date Expiration Date V isits Requested Visits Authorized [id number] Closed Patient Cleared - INN Insurance Found 12/13/2021 02/08/2022 1 1 Reason Comments Results Reason Comments Pain In bilateral legs, s tarted in June. Has been having numbness to right upper leg on and off since September. 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 Relationship Specialty Start Date End Date Brennan Contreras MD [address] [place], [place] [id number] PCP - General Family Practice 12/01/17 Process Engineering Technician Relationship Specialty Start Date End Date Brennan Contreras MD [address] [place], [place] [address]32[address] [phone] PCP - General Family Medicine 12/01/17 Process Engineering Technician Relationship Specialty Start Date End Date Brennan Contreras MD [address] [place], [place] [id number] [phone] PCP - General Family Medicine 12/01/17 Process Engineering Technician Relationship Specialty Start Date End Date Brennan Contreras MD [address] [place], [place] [address] [phone] PCP - General Family Medicine 12/01/17 Process Engineering Technician Relationship Specialty Start Date End Date Brennan Contreras MD [address] [place], [place] [address] [phone] PCP - General Family Medicine 12/01/17 Process Engineering Technician Relationship Specialty Start Date End Date Brennan Contreras MD [address] [place], [place] [address] [phone] PCP - General Family Medicine 12/01/17 Process Engineering Technician Relationship Specialty Start Date End Date Brennan Contreras MD [address] [place], [place] [address] [phone] PCP - General Family Medicine 12/01/17 INFORMATION SOURCE (unrecogn ized section and content) DATE CREATED AUTHOR AUTHOR'S TE AVERY 12/29/2022 [facility] FOR RECORDS PERTAINING TO PATIENTS WHO ARE OR HAVE BEEN ENROLLED IN A CHEMICAL DEPENDENCY/SUBSTANCEABUSE PROGRAM, SOME INFORMATION MAY BE OMITTED. This clinical summary was aggregated from multiple sources. Caution should be exercised in using it in the provision of clinical care. This summary normalizes information from multiple sources, and as a consequence, information in this document may materially change the coding, format and clinical context of patient data. In addition, data may be omitted in some cases. CLINICAL DECISIONS SHOULD BE BASED ON THE PRIMARY CLINICAL RECORDS. [facility] [employer] [facility]. provides no warranty or guarantee of the accuracy or completeness of information in this document.
== END | disposition home or self-care (01) ==
LOC: OPBI 08:21
PROVIDERS: PCP Family Medicine; Referring Provider Nurse Practitioner Women's Health; Visit Provider Nurse Practitioner Women's Health
DX: Z12.31 Encounter for screening mammogram for malignant neoplasm of breast (principal); Z80.3 Family history of malignant neoplasm of breast
CPT/HCPCS: 77063; 77067

== ENCOUNTER → 2023-10-22 | Outpatient (CLI) | payer OTHER, SELFPAY ==
--- NOTE | 2023-10-22 15:20 | EMB_PTH ---
PATIENT: JOHN KATE LOC: [facility] U#:[id number] AGE/SX: 52/F ROOM: RE10/22/[address]: CAMILLA Morrison : 1970 BED: DIS: 10/22/2023 SPEC #: [id number] RECD: 10/22/23 15:41 STATUS: TABITHA REQ #: [id number] ANGELA: 10/22/23 15:[address]: Minda Goode NP DEPT: SURGICAL PATHOLOGY RECD BY: Anum Berman ENTERED: 10/23/23 07:42 SP TYPE: ENDOM BX/C SOLITARIO DR: Dr. Gregg Humphrey MD Tissues: Endometrium, NOS Procedures: Surgery Specimen Level IV HEADER OPERATION: Endometrial biopsy PRE-OP DIAGNOSIS: Post menopausal bleeding TISSUE SUBMITTED: Endometrial tissue MICROSCOPIC DIAGNOSIS Endometrium, biopsy: Weakly proliferative endometrium with focal glandular breakdown. Strips of benign superficial endocervix. AM/mr 10/26/2023 MICROSCOPIC DESCRIPTION Slides are reviewed. GROSS DESCRIPTION Received in fixative is one container labeled with the patient's name and designated Endometrial biopsy. The specimen consists of multiple irregular fragments of pink mucoid tissue that in aggregate measure 2.5 x 0.5 x 0.1 cm. The specimen is totally submitted in one cassette. 10/23/2023 TC:5 CPT:81173
== END | disposition home or self-care (01) ==
LOC: LABSPEC 15:52
PROVIDERS: PCP Family Medicine; Referring Provider Nurse Practitioner Women's Health; Visit Provider Nurse Practitioner Women's Health
DX: N95.0 Postmenopausal bleeding (principal)
CPT/HCPCS: 88305

== ENCOUNTER → 2024-03-03 | Outpatient (CLI) | payer OTHER, SELFPAY ==
--- NOTE | 2024-03-03 12:27 | BI_ITS ---
MAMMOGRAPHY - BILATERAL SCREENING REASON FOR EXAM: Female, 53 years old. Routine annual screening examination. PERTINENT HISTORY: Sister with breast cancer. Grandmother with breast cancer. TECHNIQUE: Digital bilateral breast anupam (3D mammographic acquisition) in the CC and MLO projections. 2-D mediolateral oblique (MLO) and craniocaudad (CC) views of both breasts were obtained. CAD: Full Field Digital Mammography with Computer Added Detection was performed. COMPARISON: Comparison is made with prior study dated March 02, 2023 and February 24, 2022. FINDINGS: Breast Composition: There are scattered areas of fibroglandular density. There are no dominant masses or suspicious calcifications. Stable small benign-appearing bilateral axillary lymph nodes. No other significant abnormalities are identified. There has been no significant change since the prior study. BI/SCRN MAMM (CAD)W/ANUPAM BILAT IMPRESSION: Stable bilateral screening mammogram. Yearly follow-up mammogram recommended. (A) ASSESSMENT CATEGORY: BIRADS Category 2: Benign. A letter regarding these results will be sent to the patient by the facility within 30 days. Approximately 10% of breast cancers are not detected by mammography. A normal mammogram should not delay biopsy of a clinically suspicious abnormality. [id number] Electronically Signed: Lamonte Shane MD at 13:33 EST ,
== END | disposition home or self-care (01) ==
LOC: OPBI 12:26
PROVIDERS: PCP Family Medicine; Referring Provider Nurse Practitioner Women's Health; Visit Provider Nurse Practitioner Women's Health
DX: Z12.31 Encounter for screening mammogram for malignant neoplasm of breast (principal)
CPT/HCPCS: 77063; 77067